=== PATIENT | female | born 1990 | race Caucasian/White ===

== ENCOUNTER 2016-11-09 06:34 | Emergency (ER) | payer MEDICAID ==
[~2016-11-09] VITALS: Ht 157.5 cm; Wt 53.5 kg
[~2016-11-09 06:34] MED LIST: COGENTIN; FLUO10CA13 PO; HALDOL; OXCA150T3 PO
[2016-11-09 07:22] LABS: DAU SCREEN DISCLAIMER
[2016-11-09 07:32] LABS: HEMOGLOBIN 12.6 g/dL (11.7-16.4)
[2016-11-09 07:46] LABS: BLOOD UREA NITROGEN 8 mg/dL (7-18)
[2016-11-09 07:54] LABS: ACETAMINOPHEN < 2 mcg/mL (10-30)
[2016-11-09] MEDS ORDERED: ENOXAPARIN 40 MG/0.4 ML SQ SCH (13:30)
[2016-11-09] MEDS ORDERED: LORazepam 1MG TABLET PO PRN (13:30)
[2016-11-09] MEDS ORDERED: GUAIFENESIN/DM 200-20MG, 10ML UDC PO PRN (13:30)
[2016-11-09] MEDS ORDERED: ONDANSETRON ODT 4 MG PO PRN (13:30)
[2016-11-09] MEDS ORDERED: ACETAMINOPHEN 325 MG TABLET PO PRN (13:30)
[2016-11-09] MEDS ORDERED: DOCUSATE 100 MG CAPSULE PO PRN (13:30)
[2016-11-09 15:04] VITALS: BP 111/70
[2016-11-09] MEDS ORDERED: OXCARBAZEPINE 150 MG TABLET PO SCH (21:00)
[2016-11-10] MEDS ORDERED: FLUOXETINE 10 MG CAP PO SCH (09:00)
== END 2016-11-09 15:33 | disposition home or self-care (01) ==
LOC: ED 08:29 → UNDOADMOB 10:23 → EDIP 10:23 → ED 15:33
DX: R45.851 Suicidal ideations (principal); F20.9 Schizophrenia, unspecified; F25.9 Schizoaffective disorder, unspecified; Z88.8 Allergy status to other drugs, medicaments and biological substances; F15.10 Other stimulant abuse, uncomplicated
CPT/HCPCS: 36415; 80048; 80307; 80329; 82040; 84703; 85025; G0480

== ENCOUNTER 2016-12-28 06:08 | Observation (INO) | payer MEDICAID ==
[~2016-12-28] VITALS: Ht 157.5 cm; Wt 49.4 kg
[2016-12-28 07:17] LABS: ACETAMINOPHEN < 2 mcg/mL (10-30); ASPARTATE AMINO TRANSFERASE 14 U/L (15-37); BLOOD UREA NITROGEN 17 mg/dL (7-18)
[2016-12-28] MEDS ORDERED: QUETIAPINE 25MG TABLET PO SCH (10:00)
[2016-12-28] MEDS ORDERED: BISACODYL 10 MG SUPP PR PRN (10:00)
[2016-12-28] MEDS ORDERED: ONDANSETRON ODT 4 MG PO PRN (10:00)
[2016-12-28 10:01] LABS: PATH.CAST-FLAG NOT PRESENT; SPERM-FLAG NOT PRESENT; SRC-FLAG NOT PRESENT; XTAL-FLAG NOT PRESENT; YLC-FLAG NOT PRESENT
[2016-12-28 10:45] LABS: DAU SCREEN DISCLAIMER
[2016-12-28] MEDS ORDERED: POTASSIUM CHLORIDE 20 MEQ TAB.ER.PRT PO ONE (13:00)
[2016-12-28] MEDS ORDERED: LORazepam 0.5MG TABLET PO PRN (13:00)
[2016-12-28 13:04] VITALS: BP 105/71
[2016-12-28 20:14] VITALS: BP 105/70
[2016-12-28] MEDS ORDERED: NITROFURANTOIN (MACROBID) 100 MG CAPSULE PO SCH (23:30)
[2016-12-29] MEDS ORDERED: SENNA/DOCUSATE TABLET PO SCH (09:00)
== END 2016-12-29 01:20 ==
LOC: ED 07:20 → EDIP 09:05 → 3E 10:57
PROVIDERS: ADMIT Hospitalist; ATTEND Hospitalist
DX: R45.851 Suicidal ideations (principal); E87.6 Hypokalemia; F31.9 Bipolar disorder, unspecified; I34.1 Nonrheumatic mitral (valve) prolapse; F15.10 Other stimulant abuse, uncomplicated; Z87.820 Personal history of traumatic brain injury; Z91.5 Personal history of self-harm; F25.9 Schizoaffective disorder, unspecified
CPT/HCPCS: 36415; 80053; 80307; 80329; 81001; 84439; 84443; 84703; 85025; 85610; 87077; 87086; 87186; 99285; G0378; G0480

== ENCOUNTER 2017-03-18 01:33 | Observation (INO) | payer MEDICAID ==
[~2017-03-18] VITALS: Ht 162.6 cm; Wt 58.0 kg
[2017-03-18 02:29] LABS: BLOOD UREA NITROGEN 12 mg/dL (7-18)
[2017-03-18 02:35] LABS: ASPARTATE AMINO TRANSFERASE 26 U/L (15-37)
[2017-03-18 02:37] LABS: ACETAMINOPHEN < 2 mcg/mL (10-30)
[2017-03-18] MEDS ORDERED: ONDANSETRON ODT 4 MG PO PRN (03:30)
[2017-03-18] MEDS ORDERED: ACETAMINOPHEN 325 MG TABLET PO PRN (03:30)
[2017-03-18] MEDS ORDERED: ACETAMINOPHEN 325 MG TABLET ONE (04:14)
[2017-03-18 04:22] LABS: DAU SCREEN DISCLAIMER
[2017-03-18] MEDS: OXCARBAZEPINE 150 MG TABLET PO SCH ×2 (08:27→22:11)
[2017-03-18] MEDS: FLUOXETINE 20 MG CAPSULE PO SCH (08:27)
[2017-03-18] MEDS ORDERED: KETOROLAC 10MG TABLET PO PRN (23:00)
[2017-03-19] MEDS: FLUOXETINE 20 MG CAPSULE PO SCH (09:36)
[2017-03-19] MEDS: OXCARBAZEPINE 150 MG TABLET PO SCH ×2 (10:24→23:03)
[2017-03-19] MEDS ORDERED: KETOROLAC 30 MG/1 ML IM PRN (11:30)
[2017-03-19] MEDS ORDERED: KETOROLAC 30 MG/1 ML ONE ×2 (11:47→11:49)
[2017-03-20] MEDS: FLUOXETINE 20 MG CAPSULE PO SCH (09:00)
[2017-03-20] MEDS: OXCARBAZEPINE 150 MG TABLET PO SCH ×3 (13:26→21:24)
[2017-03-20 14:09] VITALS: BP 103/69
[2017-03-20 19:44] VITALS: BP 102/72
[2017-03-20 22:08] VITALS: BP 110/73
[2017-03-21 02:14] VITALS: BP 108/73
[2017-03-21 07:28] VITALS: BP 107/73
[2017-03-21] MEDS: FLUOXETINE 20 MG CAPSULE PO SCH (09:00)
[2017-03-21] MEDS: OXCARBAZEPINE 150 MG TABLET PO SCH ×2 (09:00→20:27)
[2017-03-21] MEDS ORDERED: ONDANSETRON ODT 4 MG PO PRN (19:30)
[2017-03-21] MEDS ORDERED: ACETAMINOPHEN 325 MG TABLET PO PRN (19:30)
[2017-03-21 19:45] VITALS: BP 110/70
[2017-03-22 07:44] VITALS: BP 99/64
[2017-03-22] MEDS: FLUOXETINE 20 MG CAPSULE PO SCH (08:49)
[2017-03-22] MEDS: OXCARBAZEPINE 150 MG TABLET PO SCH (08:51)
[2017-03-22 19:56] VITALS: BP 103/73
== END 2017-03-22 20:00 | disposition home or self-care (01) ==
LOC: ED 02:06 → EDIP 02:48 → 3E 03-20 14:07
DX: R45.851 Suicidal ideations (principal); F31.9 Bipolar disorder, unspecified; I34.1 Nonrheumatic mitral (valve) prolapse; F15.10 Other stimulant abuse, uncomplicated; Z91.14 Patient's other noncompliance with medication regimen
CPT/HCPCS: 36415; 80053; 80307; 80329; 81001; 84703; 85025; 87086; 96372; 99285; G0378; J1885; G0480

== ENCOUNTER 2017-04-04 22:18 | Emergency (ER) | payer MEDICAID ==
[~2017-04-04] VITALS: Ht 157.5 cm; Wt 55.0 kg
[2017-04-04 22:20] VITALS: BP 118/84
== END 2017-04-04 23:53 | disposition home or self-care (01) ==
LOC: ED 22:35
DX: S93.492A Sprain of other ligament of left ankle, initial encounter (principal); F25.9 Schizoaffective disorder, unspecified; F31.9 Bipolar disorder, unspecified; X50.1XXA Overexertion from prolonged static or awkward postures, initial encounter; Y93.89 Activity, other specified; Y92.89 Other specified places as the place of occurrence of the external cause; Y99.8 Other external cause status
CPT/HCPCS: 99284

== ENCOUNTER 2017-04-26 21:35 | Observation (INO) | payer MEDICAID ==
[~2017-04-26] VITALS: Ht 157.5 cm; Wt 55.0 kg
[2017-04-26 22:24] LABS: HEMATOCRIT 39.3 % (34.6-47.8); WHITE BLOOD COUNT 7.1 x10^3/uL (3.4-10)
[2017-04-26 22:37] LABS: BLOOD UREA NITROGEN 21 mg/dL (7-18)
[2017-04-26 22:40] LABS: ASPARTATE AMINO TRANSFERASE 17 U/L (15-37)
[2017-04-26 22:42] LABS: ACETAMINOPHEN < 2 mcg/mL (10-30)
[2017-04-27] MEDS ORDERED: QUET50TA PO (00:27)
[2017-04-27] MEDS ORDERED: ALBU6.7H INH (00:27)
[2017-04-27] MEDS ORDERED: OXCA150T PO (00:27)
[2017-04-27] MEDS ORDERED: [UNRECOGNIZED DRUG - CODE] PO (00:27)
[2017-04-27] MEDS ORDERED: RANI300C PO (00:27)
[2017-04-27] MEDS ORDERED: MAGN30TA2 PO (00:27)
[2017-04-27 00:34] LABS: DAU SCREEN DISCLAIMER
[2017-04-27] MEDS ORDERED: QUETIAPINE 25MG TABLET PO ONE (01:00)
[2017-04-27] MEDS ORDERED: TEMAZEPAM 15 MG CAPSULE PO PRN (02:00)
[2017-04-27] MEDS ORDERED: BENZTROPINE 1 MG TABLET PO PRN (02:00)
[2017-04-27] MEDS ORDERED: QUETIAPINE 25MG TABLET PO PRN (02:00)
[2017-04-27 02:34] VITALS: BP 110/71
[2017-04-27 08:00] VITALS: BP 97/64
[2017-04-27] MEDS: OXCARBAZEPINE 150 MG TABLET PO SCH ×3 (08:26→20:28)
[2017-04-27] MEDS: FLUOXETINE 20 MG CAPSULE PO SCH (08:26)
[2017-04-27] MEDS ORDERED: FAMOTIDINE 20 MG TABLET ONE (20:26)
[2017-04-27] MEDS: QUETIAPINE 25MG TABLET PO SCH (20:28)
[2017-04-27 20:37] VITALS: BP 107/73
[2017-04-27] MEDS: FAMOTIDINE 40 MG TABLET PO SCH (21:00)
[2017-04-28 08:00] VITALS: BP 113/73
[2017-04-28 08:40] VITALS: BP 117/74
[2017-04-28] MEDS: FLUOXETINE 20 MG CAPSULE PO SCH (08:51)
[2017-04-28] MEDS: OXCARBAZEPINE 150 MG TABLET PO SCH ×3 (08:51→20:15)
[2017-04-28 11:44] LABS: HCG UR OBC PASS
[2017-04-28 19:20] VITALS: BP_SYST 117; BP_SYST 120; BP_DIAS 74; BP_DIAS 84
[2017-04-28] MEDS ORDERED: FAMOTIDINE 20 MG TABLET ONE (20:03)
[2017-04-28] MEDS: QUETIAPINE 25MG TABLET PO SCH (20:16)
[2017-04-28] MEDS: FAMOTIDINE 40 MG TABLET PO SCH (20:16)
[2017-04-29 07:24] VITALS: BP 106/70
[2017-04-29] MEDS: FLUOXETINE 20 MG CAPSULE PO SCH (07:30)
[2017-04-29] MEDS: OXCARBAZEPINE 150 MG TABLET PO SCH ×3 (07:30→20:33)
[2017-04-29] MEDS: ACETAMINOPHEN 325 MG TABLET PO PRN ×2 (08:25→19:11)
[2017-04-29 19:56] VITALS: BP 124/74
[2017-04-29] MEDS: FAMOTIDINE 40 MG TABLET PO SCH (20:33)
[2017-04-29] MEDS: QUETIAPINE 25MG TABLET PO SCH (20:33)
[2017-04-30 07:00] VITALS: BP 103/67
[2017-04-30] MEDS: OXCARBAZEPINE 150 MG TABLET PO SCH ×3 (07:47→20:14)
[2017-04-30] MEDS: FLUOXETINE 20 MG CAPSULE PO SCH (07:47)
[2017-04-30] MEDS: ACETAMINOPHEN 325 MG TABLET PO PRN (09:05)
[2017-04-30 19:19] VITALS: BP 104/66
[2017-04-30] MEDS: FAMOTIDINE 40 MG TABLET PO SCH (20:14)
[2017-04-30] MEDS: QUETIAPINE 25MG TABLET PO SCH (20:14)
[2017-05-01 08:00] VITALS: BP 109/70
[2017-05-01] MEDS: OXCARBAZEPINE 150 MG TABLET PO SCH ×2 (08:50→16:28)
[2017-05-01] MEDS: FLUOXETINE 20 MG CAPSULE PO SCH (08:50)
[2017-05-01] MEDS ORDERED: FLUO10CA13 PO (12:10)
[2017-05-01] MEDS ORDERED: QUET50TA PO (12:10)
[2017-05-01] MEDS ORDERED: OXCA150T PO (12:10)
== END 2017-05-01 19:53 | disposition home or self-care (01) ==
LOC: ED 23:28 → EDIP 04-27 00:54 → 3E 04-27 02:24
PROVIDERS: ADMIT Internal Medicine; ATTEND Internal Medicine
DX: T14.91 Suicide attempt (principal); S69.90XA Unspecified injury of unspecified wrist, hand and finger(s), initial encounter; F25.9 Schizoaffective disorder, unspecified; F31.9 Bipolar disorder, unspecified; F43.10 Post-traumatic stress disorder, unspecified; Z87.891 Personal history of nicotine dependence; Z91.14 Patient's other noncompliance with medication regimen; Z91.5 Personal history of self-harm; X78.8XXA Intentional self-harm by other sharp object, initial encounter; Y93.89 Activity, other specified; Y92.89 Other specified places as the place of occurrence of the external cause; Y99.8 Other external cause status
CPT/HCPCS: 36415; 80053; 80307; 80329; 81025; 85025; 99285; G0378; G0480

== ENCOUNTER 2017-05-05 21:33 | Emergency (ER) | payer MEDICAID ==
[~2017-05-05] VITALS: Ht 157.5 cm; Wt 59.0 kg
[~2017-05-05 21:33] MED LIST changes: +ALBU6.7H INH; +MAGN30TA2 PO; +OXCA150T PO; +QUET50TA PO; +RANI300C PO; +[UNRECOGNIZED DRUG - CODE] PO
[2017-05-05 21:45] VITALS: BP 127/70
[2017-05-05 22:26] LABS: HEMATOCRIT 36.5 % (34.6-47.8); HEMOGLOBIN 11.9 g/dL (11.7-16.4); WHITE BLOOD COUNT 6.7 x10^3/uL (3.4-10)
[2017-05-05] MEDS ORDERED: LORazepam 1MG TABLET PO ONE (22:30)
[2017-05-05] MEDS ORDERED: LORazepam 1MG TABLET ONE (22:31)
[2017-05-05 22:33] LABS: DAU SCREEN DISCLAIMER
[2017-05-05 22:38] LABS: ACETAMINOPHEN 3 mcg/mL (10-30); BLOOD UREA NITROGEN 14 mg/dL (7-18)
== END 2017-05-05 23:06 | disposition home or self-care (01) ==
LOC: ED 22:36
DX: Z00.00 Encounter for general adult medical examination without abnormal findings (principal); F20.0 Paranoid schizophrenia; Z88.5 Allergy status to narcotic agent; Z88.8 Allergy status to other drugs, medicaments and biological substances
CPT/HCPCS: 36415; 80048; 80307; 80329; 82040; 84703; 85025; 99284; G0479; G0480

== ENCOUNTER 2017-05-08 17:42 | Observation (INO) | payer MEDICAID ==
[~2017-05-08] VITALS: Ht 157.5 cm; Wt 55.0 kg
[2017-05-08] MEDS ORDERED: QUET100T PO (18:05)
[2017-05-08 18:31] LABS: DAU SCREEN DISCLAIMER
[2017-05-08 19:02] LABS: BLOOD UREA NITROGEN 20 mg/dL (7-18)
[2017-05-08 19:06] LABS: ACETAMINOPHEN 12 mcg/mL (10-30); ASPARTATE AMINO TRANSFERASE 22 U/L (15-37)
[2017-05-08 19:14] LABS: HEMATOCRIT 37.1 % (34.6-47.8); HEMOGLOBIN 12.4 g/dL (11.7-16.4); WHITE BLOOD COUNT 5.4 x10^3/uL (3.4-10)
[2017-05-09] MEDS ORDERED: BENZTROPINE 1 MG TABLET PO PRN ×2
[2017-05-09] MEDS ORDERED: ZIPRASIDONE 20 MG INJ IM PRN
[2017-05-09] MEDS ORDERED: LORazepam 1MG TABLET ONE (21:34)
[2017-05-10] MEDS ORDERED: ACETAMINOPHEN 325 MG TABLET ONE (16:15)
[2017-05-10] MEDS: ACETAMINOPHEN 325 MG TABLET PO PRN ×2 (16:20→20:51)
[2017-05-10 19:45] VITALS: BP 114/78
[2017-05-10] MEDS ORDERED: RISPERIDONE 0.5 MG TABLET ONE (20:48)
[2017-05-10] MEDS: RISPERIDONE 0.5 MG TABLET PO SCH (20:50)
[2017-05-11 08:00] VITALS: BP 115/81
[2017-05-11] MEDS: RISPERIDONE 0.5 MG TABLET PO SCH ×2 (09:53→20:36)
[2017-05-11] MEDS: ACETAMINOPHEN 325 MG TABLET PO PRN (10:01)
[2017-05-11 19:49] VITALS: BP 112/75
[2017-05-12] MEDS: ACETAMINOPHEN 325 MG TABLET PO PRN ×2 (03:59→20:20)
[2017-05-12 08:22] VITALS: BP 103/64
[2017-05-12] MEDS: RISPERIDONE 0.5 MG TABLET PO SCH ×2 (08:41→20:21)
[2017-05-12 19:54] VITALS: BP 101/66
[2017-05-12 21:46] LABS: IS PT STATUS REG ER OR PRE ER? NO
[2017-05-13 07:25] VITALS: BP 94/59
[2017-05-13] MEDS: RISPERIDONE 0.5 MG TABLET PO SCH (08:37)
[2017-05-13] MEDS ORDERED: RISP0.5T24 PO (10:03)
== END 2017-05-13 13:46 | disposition home or self-care (01) ==
LOC: ED 21:07 → EDIP 23:42 → 3E 05-10 19:42
PROVIDERS: ADMIT Internal Medicine; ATTEND Internal Medicine
DX: T43.591A Poisoning by other antipsychotics and neuroleptics, accidental (unintentional), initial encounter (principal); F25.9 Schizoaffective disorder, unspecified; F31.9 Bipolar disorder, unspecified; F43.10 Post-traumatic stress disorder, unspecified; Y92.89 Other specified places as the place of occurrence of the external cause; Z91.5 Personal history of self-harm
CPT/HCPCS: 36415; 80053; 80307; 80329; 84484; 84702; 85025; 93005; 93971; 99285; G0378; G0479; G0480

== ENCOUNTER 2017-06-03 21:48 | Emergency (ER) | payer MEDICAID ==
[~2017-06-03] VITALS: Ht 157.5 cm; Wt 63.0 kg
[~2017-06-03 21:48] MED LIST changes: +QUET100T PO; +RISP0.5T24 PO
[2017-06-03] MEDS ORDERED: QUET25TA5 PO (22:21)
[2017-06-03] MEDS ORDERED: RANI-276 PO (22:21)
[2017-06-03] MEDS ORDERED: IBUP200C5 PO (22:24)
[2017-06-03] MEDS ORDERED: ALBU0.63 NEB (22:24)
[2017-06-03] MEDS ORDERED: NALT380S INJ (22:26)
[2017-06-03 23:32] VITALS: BP 101/62
== END 2017-06-03 23:34 | disposition home or self-care (01) ==
LOC: ED 22:10
DX: S20.212A Contusion of left front wall of thorax, initial encounter (principal); S20.211A Contusion of right front wall of thorax, initial encounter; S80.11XA Contusion of right lower leg, initial encounter; W19.XXXA Unspecified fall, initial encounter; Y93.89 Activity, other specified; Y92.099 Unspecified place in other non-institutional residence as the place of occurrence of the external cause; Y99.8 Other external cause status
CPT/HCPCS: 71020; 99284

== ENCOUNTER 2017-06-11 01:32 | Emergency (ER) | payer MEDICAID ==
[~2017-06-11] VITALS: Ht 162.6 cm; Wt 50.0 kg
[~2017-06-11 01:32] MED LIST changes: +ALBU0.63 NEB; +IBUP200C5 PO; +NALT380S INJ; +QUET25TA5 PO; +RANI-276 PO
[2017-06-11] MEDS ORDERED: ACETAMINOPHEN 325 MG TABLET PO ONE (02:00)
[2017-06-11] MEDS ORDERED: ACETAMINOPHEN 325 MG TABLET ONE (02:13)
[2017-06-11 02:59] VITALS: BP 116/80
== END 2017-06-11 03:02 | disposition home or self-care (01) ==
LOC: ED 02:56
DX: R07.89 Other chest pain (principal); F25.9 Schizoaffective disorder, unspecified; F31.9 Bipolar disorder, unspecified; Z98.890 Other specified postprocedural states
CPT/HCPCS: 71020; 93005; 99284

== ENCOUNTER 2017-06-28 20:54 | Observation (INO) | payer MEDICAID ==
[~2017-06-28] VITALS: Ht 157.5 cm; Wt 66.0 kg
[2017-06-28 21:45] LABS: HEMATOCRIT 36.4 % (34.6-47.8); HEMOGLOBIN 11.9 g/dL (11.7-16.4); WHITE BLOOD COUNT 10.5 x10^3/uL (3.4-10)
[2017-06-28 21:57] LABS: ASPARTATE AMINO TRANSFERASE 25 U/L (15-37); BLOOD UREA NITROGEN 15 mg/dL (7-18)
[2017-06-28 21:59] LABS: DAU SCREEN DISCLAIMER
[2017-06-28 22:02] LABS: ACETAMINOPHEN < 2 mcg/mL (10-30)
[2017-06-29] MEDS ORDERED: ACETAMINOPHEN 325 MG TABLET PO PRN (01:00)
[2017-06-29] MEDS ORDERED: LORazepam 1MG TABLET PO PRN (01:00)
[2017-06-29] MEDS ORDERED: ONDANSETRON ODT 4 MG PO PRN (01:00)
[2017-06-29 02:16] VITALS: BP 109/67
[2017-06-29] MEDS ORDERED: ALBUTEROL SULFATE 2.5 MG/3 ML NPPB PRN (02:30)
[2017-06-29 07:33] VITALS: BP 95/60
[2017-06-29] MEDS: OXCARBAZEPINE 150 MG TABLET PO SCH ×3 (09:19→20:00)
[2017-06-29] MEDS: FLUOXETINE 10 MG CAP PO SCH (09:19)
[2017-06-29] MEDS: QUETIAPINE 25MG TABLET PO SCH (09:19)
[2017-06-29] MEDS: FAMOTIDINE 20 MG TABLET PO SCH (09:20)
[2017-06-29 19:41] VITALS: BP 102/65
[2017-06-29] MEDS ORDERED: QUETIAPINE 100MG TABLET PO ONE (20:00)
[2017-06-30 07:56] VITALS: BP 93/62
[2017-06-30] MEDS: FAMOTIDINE 20 MG TABLET PO SCH (08:13)
[2017-06-30] MEDS: OXCARBAZEPINE 150 MG TABLET PO SCH ×2 (08:14→16:25)
[2017-06-30] MEDS: QUETIAPINE 25MG TABLET PO SCH (08:14)
[2017-06-30] MEDS: FLUOXETINE 10 MG CAP PO SCH (08:14)
== END 2017-06-30 16:35 | disposition home or self-care (01) ==
LOC: ED 23:18 → EDIP 06-29 00:09 → 3E 06-29 02:15
PROVIDERS: ADMIT Hospitalist; ATTEND Hospitalist
DX: F20.9 Schizophrenia, unspecified (principal); Q90.9 Down syndrome, unspecified; Z87.891 Personal history of nicotine dependence; F31.9 Bipolar disorder, unspecified
CPT/HCPCS: 36415; 80053; 80307; 80329; 84703; 85025; 99285; G0378; G0479; G0480

== ENCOUNTER 2017-07-14 17:05 | Emergency (ER) | payer MEDICAID ==
[~2017-07-14] VITALS: Ht 157.5 cm; Wt 68.5 kg
[2017-07-14 17:07] VITALS: BP 110/79
[2017-07-14] MEDS ORDERED: TERB250T3 PO (17:38)
[2017-07-14] MEDS ORDERED: FLUOXETINE 20 MG CAPSULE PO ONE (18:00)
[2017-07-14] MEDS ORDERED: FLUOXETINE 20 MG CAPSULE PO SCH (18:00)
== END 2017-07-14 18:27 | disposition home or self-care (01) ==
LOC: ED 18:21
DX: R45.851 Suicidal ideations (principal); F31.9 Bipolar disorder, unspecified; F20.9 Schizophrenia, unspecified
CPT/HCPCS: 99284

== ENCOUNTER 2017-08-18 20:50 | Emergency (ER) | payer MEDICAID ==
[~2017-08-18] VITALS: Ht 157.5 cm; Wt 65.8 kg
[~2017-08-18 20:50] MED LIST changes: +TERB250T3 PO
[2017-08-19 01:08] LABS: RAPID INFLUENZA A Negative (Negative); RAPID INFLUENZA B Negative (Negative)
[2017-08-19 01:34] VITALS: BP 111/45
== END 2017-08-19 01:36 | disposition home or self-care (01) ==
LOC: ED 23:28
DX: R05 Cough (principal); R09.81 Nasal congestion; R07.89 Other chest pain; F20.9 Schizophrenia, unspecified; F31.9 Bipolar disorder, unspecified
CPT/HCPCS: 71020; 87400; 93005; 99285

== ENCOUNTER 2017-08-24 23:01 | Observation (INO) | payer MEDICAID ==
[~2017-08-24] VITALS: Ht 157.5 cm; Wt 60.0 kg
[2017-08-24 23:45] LABS: BASOPHILS # (AUTO) 0.01 x10^3/uL (0-0.1); BASOPHILS % (AUTO) 0 % (0-1); EOSINOPHILS # (AUTO) 0.13 x10^3/uL (0-0.4); EOSINOPHILS % (AUTO) 2 % (1-7); LYMPHOCYTES # (AUTO) 2.69 x10^3/uL (1-3.4); LYMPHOCYTES % (AUTO) 34 % (22-44); MD NO; MEAN CORPUSCULAR HEMOGLOBIN 25.5 pg (27.0-34.8); MEAN CORPUSCULAR HGB CONC 33.1 g/dL (32.4-35.8); MEAN CORPUSCULAR VOLUME 76.8 fL (80-100); MEAN PLATELET VOLUME 7.2 fL (7.4-10.4); MONOCYTES # (AUTO) 0.32 x10^3/uL (0.2-0.8); MONOCYTES % (AUTO) 4 % (2-9); NEUTROPHILS # (AUTO) 4.71 x10^3/uL (1.8-6.8); NEUTROPHILS % (AUTO) 60 % (42-75); PLATELET COUNT 348 x10^3/uL (130-400); RED BLOOD COUNT 4.94 x10^6/uL (3.82-5.3)
[2017-08-24 23:58] LABS: ALBUMIN 3.6 g/dL (3.4-5.0); ANION GAP 8 mmol/L (5-15); CALCIUM 8.6 mg/dL (8.5-10.1); CHLORIDE 110 mmol/L (98-107)
[2017-08-25 00:01] LABS: ALANINE AMINOTRANSFERASE 18 U/L (12-78); ALKALINE PHOSPHATASE 93 U/L (45-117); BILIRUBIN,TOTAL 0.3 mg/dL (0.2-1.0); CREATININE 0.65 mg/dL (0.55-1.02); TOTAL PROTEIN 7.1 g/dL (6.4-8.2)
[2017-08-25 00:02] LABS: ACETAMINOPHEN < 2 mcg/mL (10-30); SALICYLATE LEVEL < 1.7 mg/dL (2.8-20.0)
[2017-08-25] MEDS ORDERED: ZIPRASIDONE 20 MG INJ IM ONE ×2 (00:30→00:45)
[2017-08-25] MEDS: OXCARBAZEPINE 150 MG TABLET PO SCH ×3 (11:00→21:15)
[2017-08-25] MEDS ORDERED: ZIPRASIDONE 20MG CAPSULE PO PRN (11:00)
[2017-08-25] MEDS ORDERED: ONDANSETRON ODT 4 MG PO PRN (11:00)
[2017-08-25] MEDS ORDERED: FLUOXETINE 10 MG CAP PO SCH (11:00)
[2017-08-25] MEDS ORDERED: RANITIDINE HCL 75 MG PO SCH (11:00)
[2017-08-25] MEDS: TERBINAFINE 250MG TABLET PO SCH (11:00)
[2017-08-25] MEDS ORDERED: DIPHENHYDRAMINE 50 MG CAPSULE PO PRN (11:00)
[2017-08-25] MEDS ORDERED: ZIPRASIDONE 20 MG INJ IM PRN (11:00)
[2017-08-25] MEDS ORDERED: ALBUTEROL SULFATE 2.5 MG/3 ML NEB PRN (11:00)
[2017-08-25] MEDS ORDERED: ACETAMINOPHEN 325 MG TABLET ONE (18:21)
[2017-08-25] MEDS: ACETAMINOPHEN 325 MG TABLET PO PRN (18:23)
[2017-08-25] MEDS: QUETIAPINE 200 MG TABLET PO SCH (21:15)
[2017-08-25 23:38] LABS: MICROSCOPIC AUTO
[2017-08-25 23:42] LABS: CULTURE INDICATED? YES
[2017-08-25 23:46] LABS: AMPHETAMINE SCREEN, URINE Negative (Negative); BARBITURATE SCREEN, URINE Negative (Negative); BENZODIAZEPINE SCREEN, URINE Negative (Negative); CANNABINOID SCREEN, URINE Negative (Negative); COCAINE SCREEN, URINE Negative (Negative); METHADONE SCREEN, URINE Negative (Negative); OPIATE SCREEN, URINE Negative (Negative)
[2017-08-26 00:02] VITALS: BP 122/84
[2017-08-26] MEDS ORDERED: FLU VACC QS2017-18 (36MOS+) UP/PF 0.5 ML IM-VACC ONE (00:30)
[2017-08-26 07:47] VITALS: BP 112/70
[2017-08-26] MEDS: OXCARBAZEPINE 150 MG TABLET PO SCH ×3 (08:10→21:27)
[2017-08-26] MEDS: FLUOXETINE 20 MG CAPSULE PO SCH (08:10)
[2017-08-26] MEDS: TERBINAFINE 250MG TABLET PO SCH (08:11)
[2017-08-26] MEDS: FAMOTIDINE 20 MG TABLET PO SCH (08:12)
[2017-08-26 20:00] VITALS: BP 111/74
[2017-08-26] MEDS: QUETIAPINE 200 MG TABLET PO SCH (21:27)
[2017-08-27 07:38] VITALS: BP 115/76
[2017-08-27] MEDS: OXCARBAZEPINE 150 MG TABLET PO SCH ×3 (08:02→20:42)
[2017-08-27] MEDS: TERBINAFINE 250MG TABLET PO SCH (08:03)
[2017-08-27] MEDS: FLUOXETINE 20 MG CAPSULE PO SCH (08:03)
[2017-08-27] MEDS: FAMOTIDINE 20 MG TABLET PO SCH (08:03)
[2017-08-27 13:04] LABS: HCG UR SG 1.022 (1.003-1.030)
[2017-08-27 19:34] VITALS: BP 116/78
[2017-08-27] MEDS: QUETIAPINE 200 MG TABLET PO SCH (20:42)
[2017-08-28] MEDS: ACETAMINOPHEN 325 MG TABLET PO PRN (00:52)
[2017-08-28 07:50] VITALS: BP 98/62
[2017-08-28] MEDS: TERBINAFINE 250MG TABLET PO SCH (08:48)
[2017-08-28] MEDS: FLUOXETINE 20 MG CAPSULE PO SCH (08:49)
[2017-08-28] MEDS: OXCARBAZEPINE 150 MG TABLET PO SCH (08:49)
[2017-08-28] MEDS: FAMOTIDINE 20 MG TABLET PO SCH (08:49)
== END 2017-08-28 13:45 ==
LOC: ED 23:59 → INTOOBSV 08-25 01:08 → EDIP 08-25 01:08 → 2N 08-26
PROVIDERS: ADMIT Surgery; ATTEND Family Medicine
DX: R45.851 Suicidal ideations (principal); F31.9 Bipolar disorder, unspecified; F25.9 Schizoaffective disorder, unspecified; Z87.891 Personal history of nicotine dependence; Z23 Encounter for immunization
CPT/HCPCS: 36415; 80053; 80307; 80329; 81001; 81025; 85025; 87086; 90471; 90686; 96372; 99285; G0378; J3486; G0480

== ENCOUNTER 2017-09-15 06:09 | Emergency (ER) | payer MEDICAID ==
[~2017-09-15] VITALS: Ht 157.5 cm; Wt 67.8 kg
[2017-09-15 06:45] VITALS: BP 118/76
[2017-09-15 07:24] LABS: MICROSCOPIC AUTO
[2017-09-15 07:29] LABS: CULTURE INDICATED? YES; HCG UR SG 1.018 (1.003-1.030)
== END 2017-09-15 07:48 | disposition home or self-care (01) ==
LOC: ED 07:42
DX: F10.120 Alcohol abuse with intoxication, uncomplicated (principal); R82.99 Other abnormal findings in urine
CPT/HCPCS: 81001; 81025; 82962; 87086; 99284

== ENCOUNTER 2017-10-06 16:32 | Emergency (ER) | payer MEDICAID ==
[~2017-10-06] VITALS: Ht 157.5 cm; Wt 69.1 kg
[2017-10-06 16:34] VITALS: BP 120/80
[2017-10-06] MEDS ORDERED: ACETAMINOPHEN 500 MG TABLET ONE (17:36)
[2017-10-06] MEDS ORDERED: TOPI25CA5 PO (17:44)
[2017-10-06] MEDS ORDERED: ACETAMINOPHEN 500 MG TABLET PO ONE (18:00)
[2017-10-06] MEDS ORDERED: IBUPROFEN 200 MG TABLET PO ONE (18:30)
[2017-10-06] MEDS ORDERED: IBUPROFEN 200 MG TABLET ONE (18:32)
== END 2017-10-06 18:53 | disposition home or self-care (01) ==
LOC: ED 18:47
DX: S06.0X0A Concussion without loss of consciousness, initial encounter (principal); S00.12XA Contusion of left eyelid and periocular area, initial encounter; Z88.1 Allergy status to other antibiotic agents; X58.XXXA Exposure to other specified factors, initial encounter; Y93.K1 Activity, walking an animal; Y92.89 Other specified places as the place of occurrence of the external cause; Y99.8 Other external cause status
CPT/HCPCS: 70450; 70486; 99284

== ENCOUNTER 2017-11-05 19:52 | Emergency (ER) | payer MEDICAID ==
[~2017-11-05] VITALS: Ht 157.5 cm; Wt 67.5 kg
[~2017-11-05 19:52] MED LIST changes: +TOPI25CA5 PO
[2017-11-05 19:55] VITALS: BP 134/84
[2017-11-05] MEDS ORDERED: KETOROLAC 30 MG/1 ML ONE (20:26)
[2017-11-05] MEDS ORDERED: DIPHENHYDRAMINE 50 MG/ML, 1ML ONE (20:26)
[2017-11-05] MEDS ORDERED: METOCLOPRAMIDE 5 MG/ML, 2ML ONE (20:27)
[2017-11-05] MEDS ORDERED: DIPHENHYDRAMINE 50 MG/ML, 1ML IVPush ONE (20:30)
[2017-11-05] MEDS ORDERED: SODIUM CHLORIDE 0.9% 1,000ML IVBOLUS ONE (20:30)
[2017-11-05] MEDS ORDERED: KETOROLAC 30 MG/1 ML IVPush ONE (20:30)
[2017-11-05] MEDS ORDERED: SODIUM CHLORIDE FLUSH 10ML SYR IVF ONE (20:30)
[2017-11-05] MEDS ORDERED: METOCLOPRAMIDE 5 MG/ML, 2ML IVPush ONE (20:30)
== END 2017-11-05 21:46 ==
LOC: ED 21:05
DX: G44.039 Episodic paroxysmal hemicrania, not intractable (principal); F25.9 Schizoaffective disorder, unspecified; F31.9 Bipolar disorder, unspecified; F43.20 Adjustment disorder, unspecified
CPT/HCPCS: 96374; 96375; 99284; J1200; J1885; J2765; J7030

== ENCOUNTER 2018-02-07 11:34 | Emergency (ER) | payer MEDICAID ==
[~2018-02-07] VITALS: Ht 157.5 cm; Wt 63.5 kg
[2018-02-07 12:14] LABS: BASOPHILS # (AUTO) 0.08 x10^3/uL (0-0.1); BASOPHILS % (AUTO) 1 % (0-1); EOSINOPHILS # (AUTO) 0.19 x10^3/uL (0-0.4); EOSINOPHILS % (AUTO) 2 % (1-7); LYMPHOCYTES # (AUTO) 2.96 x10^3/uL (1-3.4); LYMPHOCYTES % (AUTO) 35 % (22-44); MD NO; MEAN CORPUSCULAR HEMOGLOBIN 26.6 pg (27.0-34.8); MEAN CORPUSCULAR HGB CONC 32.7 g/dL (32.4-35.8); MEAN CORPUSCULAR VOLUME 81.4 fL (80-100); MEAN PLATELET VOLUME 7.5 fL (7.4-10.4); MONOCYTES # (AUTO) 0.58 x10^3/uL (0.2-0.8); MONOCYTES % (AUTO) 7 % (2-9); NEUTROPHILS # (AUTO) 4.75 x10^3/uL (1.8-6.8); NEUTROPHILS % (AUTO) 56 % (42-75); PLATELET COUNT 339 x10^3/uL (130-400); RED BLOOD COUNT 4.89 x10^6/uL (3.82-5.3); RED CELL DISTRIBUTION WIDTH 16.7 % (9.6-15.2)
[2018-02-07 12:25] LABS: ALBUMIN 3.9 g/dL (3.4-5.0); ANION GAP 6 mmol/L (5-15); CALCIUM 8.9 mg/dL (8.5-10.1); CHLORIDE 109 mmol/L (98-107)
[2018-02-07 12:33] LABS: ALANINE AMINOTRANSFERASE 22 U/L (12-78); ALKALINE PHOSPHATASE 93 U/L (45-117); BILIRUBIN,TOTAL 0.4 mg/dL (0.2-1.0); CREATININE 0.83 mg/dL (0.55-1.02); TOTAL PROTEIN 7.3 g/dL (6.4-8.2)
[2018-02-07 14:00] LABS: MICROSCOPIC INDICATED
[2018-02-07 14:08] LABS: CULTURE INDICATED? YES
[2018-02-07 14:21] VITALS: BP 123/89
== END 2018-02-07 14:31 | disposition home or self-care (01) ==
LOC: ED 14:25
DX: N30.00 Acute cystitis without hematuria (principal)
CPT/HCPCS: 36415; 80053; 81001; 83690; 84703; 85025; 87086; 99284

== ENCOUNTER 2018-03-19 02:38 | Emergency (ER) | payer MEDICAID ==
[~2018-03-19] VITALS: Ht 170.2 cm; Wt 59.0 kg
[~2018-03-19 02:38] MED LIST changes: +IBUP-1623 PO; -IBUP200C5 PO
[2018-03-19 03:31] LABS: BASOPHILS # (AUTO) 0.05 x10^3/uL (0-0.1); BASOPHILS % (AUTO) 0 % (0-1); EOSINOPHILS # (AUTO) 0.07 x10^3/uL (0-0.4); EOSINOPHILS % (AUTO) 1 % (1-7); LYMPHOCYTES # (AUTO) 3.29 x10^3/uL (1-3.4); LYMPHOCYTES % (AUTO) 27 % (22-44); MD NO; MEAN CORPUSCULAR HEMOGLOBIN 26.4 pg (27.0-34.8); MEAN CORPUSCULAR HGB CONC 33.1 g/dL (32.4-35.8); MEAN CORPUSCULAR VOLUME 79.8 fL (80-100); MEAN PLATELET VOLUME 7.5 fL (7.4-10.4); MONOCYTES # (AUTO) 0.56 x10^3/uL (0.2-0.8); MONOCYTES % (AUTO) 5 % (2-9); NEUTROPHILS # (AUTO) 8.07 x10^3/uL (1.8-6.8); NEUTROPHILS % (AUTO) 67 % (42-75); PLATELET COUNT 328 x10^3/uL (130-400); RED BLOOD COUNT 4.86 x10^6/uL (3.82-5.3); RED CELL DISTRIBUTION WIDTH 16.9 % (9.6-15.2)
[2018-03-19] MEDS ORDERED: ONDANSETRON ODT 4 MG ONE (03:32)
[2018-03-19 03:34] LABS: ALANINE AMINOTRANSFERASE 17 U/L (12-78); ANION GAP 8 mmol/L (5-15); CALCIUM 8.6 mg/dL (8.5-10.1); CHLORIDE 115 mmol/L (98-107)
[2018-03-19 03:40] LABS: ACETAMINOPHEN < 2 mcg/mL (10-30); ALKALINE PHOSPHATASE 78 U/L (45-117); BILIRUBIN,TOTAL 0.2 mg/dL (0.2-1.0); CREATININE 0.89 mg/dL (0.55-1.02); SALICYLATE LEVEL < 1.7 mg/dL (2.8-20.0); TOTAL PROTEIN 7.1 g/dL (6.4-8.2)
[2018-03-19] MEDS ORDERED: ONDANSETRON ODT 4 MG PO ONE (04:00)
[2018-03-19 06:41] VITALS: BP 117/74
[2018-03-19 07:01] LABS: AMPHETAMINE SCREEN, URINE Negative (Negative); BARBITURATE SCREEN, URINE Negative (Negative); BENZODIAZEPINE SCREEN, URINE Positive (Negative); CANNABINOID SCREEN, URINE Positive (Negative); COCAINE SCREEN, URINE Negative (Negative); METHADONE SCREEN, URINE Negative (Negative); OPIATE SCREEN, URINE Negative (Negative)
== END 2018-03-19 14:22 | disposition home or self-care (01) ==
LOC: ED 03:11
DX: F20.89 Other schizophrenia (principal); F43.24 Adjustment disorder with disturbance of conduct; F31.9 Bipolar disorder, unspecified
CPT/HCPCS: 36415; 80053; 80307; 80329; 84703; 85025; 99285; Q0162; G0480

== ENCOUNTER 2018-03-23 23:47 | Emergency (ER) | payer MEDICAID ==
[~2018-03-23] VITALS: Ht 167.6 cm; Wt 58.0 kg
[2018-03-23 23:49] VITALS: BP 141/64
[2018-03-24] MEDS ORDERED: TRAZ-136 PO (00:06)
== END 2018-03-24 03:25 | disposition home or self-care (01) ==
LOC: ED 23:59
DX: F32.0 Major depressive disorder, single episode, mild (principal); F60.3 Borderline personality disorder; F25.9 Schizoaffective disorder, unspecified
CPT/HCPCS: 99284

== ENCOUNTER 2018-03-24 23:22 | Emergency (ER) | payer MEDICAID ==
[~2018-03-24] VITALS: Ht 165.1 cm; Wt 70.0 kg
[~2018-03-24 23:22] MED LIST changes: +TRAZ-136 PO
[2018-03-24 23:24] VITALS: BP 104/68
[2018-03-24 23:43] LABS: MICROSCOPIC AUTO
[2018-03-24 23:49] LABS: CULTURE INDICATED? YES
[2018-03-24] MEDS ORDERED: ACETAMINOPHEN 325 MG TABLET ONE (23:51)
[2018-03-24 23:54] LABS: ALANINE AMINOTRANSFERASE 18 U/L (12-78); ALBUMIN 3.6 g/dL (3.4-5.0); ANION GAP 4 mmol/L (5-15); CALCIUM 8.5 mg/dL (8.5-10.1); CHLORIDE 110 mmol/L (98-107); CREATININE 0.89 mg/dL (0.55-1.02)
[2018-03-24 23:56] LABS: ALKALINE PHOSPHATASE 91 U/L (45-117); BILIRUBIN,TOTAL 0.1 mg/dL (0.2-1.0); TOTAL PROTEIN 6.6 g/dL (6.4-8.2)
[2018-03-25] MEDS ORDERED: ACETAMINOPHEN 325 MG TABLET PO ONE
[2018-03-25 00:01] LABS: HCG UR SG 1.026 (1.003-1.030)
[2018-03-25 00:33] LABS: BASOPHILS # (AUTO) 0.12 x10^3/uL (0-0.1); BASOPHILS % (AUTO) 1 % (0-1); EOSINOPHILS # (AUTO) 0.21 x10^3/uL (0-0.4); EOSINOPHILS % (AUTO) 2 % (1-7); LYMPHOCYTES # (AUTO) 2.82 x10^3/uL (1-3.4); LYMPHOCYTES % (AUTO) 32 % (22-44); MD NO; MEAN CORPUSCULAR HEMOGLOBIN 26.8 pg (27.0-34.8); MEAN CORPUSCULAR HGB CONC 33.8 g/dL (32.4-35.8); MEAN CORPUSCULAR VOLUME 79.4 fL (80-100); MEAN PLATELET VOLUME 7.9 fL (7.4-10.4); MONOCYTES % (AUTO) 5 % (2-9); NEUTROPHILS # (AUTO) 5.26 x10^3/uL (1.8-6.8); NEUTROPHILS % (AUTO) 60 % (42-75); PLATELET COUNT 253 x10^3/uL (130-400); RED BLOOD COUNT 4.43 x10^6/uL (3.82-5.3)
== END 2018-03-25 00:42 | disposition home or self-care (01) ==
LOC: ED 23:58
DX: N30.01 Acute cystitis with hematuria (principal); R11.0 Nausea; Z72.9 Problem related to lifestyle, unspecified
CPT/HCPCS: 36415; 80053; 81001; 81025; 83690; 85025; 86901; 87086; 99284

== ENCOUNTER 2018-03-30 14:40 | Observation (INO) | payer MEDICAID ==
[~2018-03-30] VITALS: Ht 167.6 cm; Wt 65.0 kg
[2018-03-30] MEDS ORDERED: KETAMINE 100 MG/ML, 5ML IM ONE (15:00)
[2018-03-30] MEDS ORDERED: SODIUM CHLORIDE 0.9% 1,000ML IVBOLUS ONE (15:00)
[2018-03-30 15:29] LABS: ALBUMIN 3.3 g/dL (3.4-5.0); ANION GAP 9 mmol/L (5-15); CALCIUM 8.1 mg/dL (8.5-10.1); CHLORIDE 116 mmol/L (98-107)
[2018-03-30 15:31] LABS: MEAN CORPUSCULAR HGB CONC 32.9 g/dL (32.4-35.8); MEAN CORPUSCULAR VOLUME 79.2 fL (80-100); MEAN PLATELET VOLUME 7.9 fL (7.4-10.4); PLATELET COUNT 250 x10^3/uL (130-400); RED BLOOD COUNT 4.31 x10^6/uL (3.82-5.3); RED CELL DISTRIBUTION WIDTH 16.7 % (9.6-15.2)
[2018-03-30 15:35] LABS: ACETAMINOPHEN 21 mcg/mL (10-30); ALANINE AMINOTRANSFERASE 15 U/L (12-78); ALKALINE PHOSPHATASE 59 U/L (45-117); BILIRUBIN,TOTAL 0.1 mg/dL (0.2-1.0); CREATININE 0.63 mg/dL (0.55-1.02); TOTAL PROTEIN 6.2 g/dL (6.4-8.2)
[2018-03-30 15:36] LABS: SALICYLATE LEVEL < 1.7 mg/dL (2.8-20.0)
[2018-03-30] MEDS ORDERED: OXCA300T3 PO (15:45)
[2018-03-30] MEDS ORDERED: QUET300T5 PO (15:45)
[2018-03-30] MEDS ORDERED: FLUO20CA19 PO (15:45)
[2018-03-30 15:55] LABS: BASOPHILS # (AUTO) 0.03 x10^3/uL (0-0.1); BASOPHILS % (AUTO) 1 % (0-1); EOSINOPHILS # (AUTO) 0.07 x10^3/uL (0-0.4); EOSINOPHILS % (AUTO) 1 % (1-7); LYMPHOCYTES # (AUTO) 2.01 x10^3/uL (1-3.4); LYMPHOCYTES % (AUTO) 33 % (22-44); MD SCAN; MONOCYTES # (AUTO) 0.26 x10^3/uL (0.2-0.8); MONOCYTES % (AUTO) 4 % (2-9); NEUTROPHILS # (AUTO) 3.78 x10^3/uL (1.8-6.8); NEUTROPHILS % (AUTO) 61 % (42-75)
[2018-03-30] MEDS ORDERED: ONDANSETRON 2MG/ML, 2ML IVPush ONE (17:00)
[2018-03-30] MEDS ORDERED: ONDANSETRON 2MG/ML, 2ML ONE (17:05)
[2018-03-30] MEDS ORDERED: BENZTROPINE 1 MG TABLET PO PRN ×2 (20:00)
[2018-03-30] MEDS ORDERED: DIPHENHYDRAMINE 50 MG CAPSULE PO PRN (20:00)
[2018-03-30] MEDS ORDERED: LORazepam 1MG TABLET PO PRN (20:00)
[2018-03-30] MEDS ORDERED: HALOPERIDOL 5 MG TABLET PO PRN (20:00)
[2018-03-30] MEDS ORDERED: ACETAMINOPHEN 325 MG TABLET PO PRN (20:00)
[2018-03-30] MEDS ORDERED: HYDROcodone/APAP 5/325 TABLET PO PRN (20:00)
[2018-03-30 22:33] LABS: HCG UR SG 1.034 (1.003-1.030)
[2018-03-30 22:39] LABS: AMPHETAMINE SCREEN, URINE Negative (Negative); BARBITURATE SCREEN, URINE Negative (Negative); BENZODIAZEPINE SCREEN, URINE Negative (Negative); CANNABINOID SCREEN, URINE Negative (Negative); COCAINE SCREEN, URINE Negative (Negative); METHADONE SCREEN, URINE Negative (Negative); OPIATE SCREEN, URINE Negative (Negative)
[2018-03-30 23:29] VITALS: BP 108/61
[2018-03-30] MEDS: TRAZODONE 50MG TABLET PO SCH (23:40)
[2018-03-30] MEDS: OXCARBAZEPINE 300MG TABLET PO SCH (23:40)
[2018-03-31 07:26] LABS: AMPHETAMINE SCREEN, URINE Negative (Negative); BARBITURATE SCREEN, URINE Negative (Negative); BENZODIAZEPINE SCREEN, URINE Negative (Negative); CANNABINOID SCREEN, URINE Negative (Negative); COCAINE SCREEN, URINE Negative (Negative); METHADONE SCREEN, URINE Negative (Negative); OPIATE SCREEN, URINE Negative (Negative)
[2018-03-31 08:51] VITALS: BP 96/63
[2018-03-31] MEDS: FLUOXETINE HCL 20 MG CAPSULE PO SCH (08:56)
[2018-03-31] MEDS: OXCARBAZEPINE 300MG TABLET PO SCH ×2 (08:56→21:20)
[2018-03-31] MEDS ORDERED: QUETIAPINE 200 MG TABLET PO SCH ×2 (09:00→21:00)
[2018-03-31 20:44] VITALS: BP 113/68
[2018-03-31] MEDS: TRAZODONE 50MG TABLET PO SCH (21:20)
[2018-04-01 07:26] VITALS: BP 96/64
[2018-04-01] MEDS: OXCARBAZEPINE 300MG TABLET PO SCH ×2 (08:58→21:09)
[2018-04-01] MEDS: FLUOXETINE HCL 20 MG CAPSULE PO SCH (08:58)
[2018-04-01 19:27] VITALS: BP 105/70
[2018-04-01] MEDS: TRAZODONE 50MG TABLET PO SCH (21:08)
[2018-04-01] MEDS ORDERED: QUETIAPINE 200 MG TABLET ONE (21:26)
[2018-04-01] MEDS: QUETIAPINE 200 MG TABLET PO SCH (21:34)
[2018-04-02 07:10] LABS: BASOPHILS # (AUTO) 0.14 x10^3/uL (0-0.1); BASOPHILS % (AUTO) 2 % (0-1); EOSINOPHILS # (AUTO) 0.21 x10^3/uL (0-0.4); EOSINOPHILS % (AUTO) 2 % (1-7); LYMPHOCYTES # (AUTO) 3.54 x10^3/uL (1-3.4); LYMPHOCYTES % (AUTO) 40 % (22-44); MD NO; MEAN CORPUSCULAR HEMOGLOBIN 25.9 pg (27.0-34.8); MEAN CORPUSCULAR HGB CONC 32.8 g/dL (32.4-35.8); MEAN PLATELET VOLUME 7.5 fL (7.4-10.4); MONOCYTES # (AUTO) 0.62 x10^3/uL (0.2-0.8); MONOCYTES % (AUTO) 7 % (2-9); NEUTROPHILS # (AUTO) 4.32 x10^3/uL (1.8-6.8); NEUTROPHILS % (AUTO) 49 % (42-75); PLATELET COUNT 320 x10^3/uL (130-400); RED CELL DISTRIBUTION WIDTH 17.2 % (9.6-15.2)
[2018-04-02 07:13] LABS: ALBUMIN 3.4 g/dL (3.4-5.0); ANION GAP 7 mmol/L (5-15); CALCIUM 8.8 mg/dL (8.5-10.1); CHLORIDE 108 mmol/L (98-107); CREATININE 0.71 mg/dL (0.55-1.02)
[2018-04-02 07:52] VITALS: BP 95/61
[2018-04-02] MEDS: FLUOXETINE HCL 20 MG CAPSULE PO SCH (09:38)
[2018-04-02] MEDS: OXCARBAZEPINE 300MG TABLET PO SCH ×3 (09:38→21:16)
[2018-04-02 19:29] VITALS: BP 109/75
[2018-04-02] MEDS: TRAZODONE 50MG TABLET PO SCH (21:15)
[2018-04-02] MEDS: QUETIAPINE 200 MG TABLET PO SCH (21:15)
[2018-04-03 08:22] VITALS: BP 92/60
[2018-04-03] MEDS: OXCARBAZEPINE 300MG TABLET PO SCH ×3 (09:00→21:32)
[2018-04-03] MEDS: FLUOXETINE HCL 20 MG CAPSULE PO SCH (09:00)
[2018-04-03 20:14] VITALS: BP 104/69
[2018-04-03] MEDS: QUETIAPINE 200 MG TABLET PO SCH (21:32)
[2018-04-03] MEDS: TRAZODONE 50MG TABLET PO SCH (21:32)
[2018-04-04 08:00] VITALS: BP_SYST 94; BP_SYST 99; BP_DIAS 55; BP_DIAS 66
[2018-04-04] MEDS: FLUOXETINE HCL 20 MG CAPSULE PO SCH (08:07)
[2018-04-04] MEDS: OXCARBAZEPINE 300MG TABLET PO SCH ×3 (08:07→21:40)
[2018-04-04 20:00] VITALS: BP 123/77
[2018-04-04] MEDS: QUETIAPINE 200 MG TABLET PO SCH (21:40)
[2018-04-04] MEDS: TRAZODONE 50MG TABLET PO SCH (21:40)
[2018-04-05 08:39] VITALS: BP 92/58
[2018-04-05] MEDS: FLUOXETINE HCL 20 MG CAPSULE PO SCH (08:39)
[2018-04-05] MEDS: OXCARBAZEPINE 300MG TABLET PO SCH ×3 (08:39→21:00)
[2018-04-05 19:52] VITALS: BP 106/71
[2018-04-05] MEDS: TRAZODONE 50MG TABLET PO SCH (21:00)
[2018-04-05] MEDS: QUETIAPINE 200 MG TABLET PO SCH (21:00)
[2018-04-06 07:36] VITALS: BP 112/74
[2018-04-06] MEDS: OXCARBAZEPINE 300MG TABLET PO SCH ×3 (09:13→20:26)
[2018-04-06] MEDS: FLUOXETINE HCL 20 MG CAPSULE PO SCH (09:13)
[2018-04-06 09:18] VITALS: BP 100/63
[2018-04-06 19:42] VITALS: BP 107/70
[2018-04-06] MEDS: TRAZODONE 50MG TABLET PO SCH (20:26)
[2018-04-06] MEDS: QUETIAPINE 200 MG TABLET PO SCH (20:26)
[2018-04-07 07:41] VITALS: BP 99/58
[2018-04-07] MEDS: OXCARBAZEPINE 300MG TABLET PO SCH (08:43)
[2018-04-07] MEDS: FLUOXETINE HCL 20 MG CAPSULE PO SCH (08:43)
[2018-04-07] MEDS ORDERED: BENZ1TAB61 PO (13:42)
[2018-04-07] MEDS ORDERED: QUET300T5 PO (13:42)
== END 2018-04-07 16:35 | disposition home or self-care (01) ==
LOC: ED 15:10 → EDIP 18:24 → 2N 23:24
PROVIDERS: ADMIT Family Medicine; ATTEND Family Medicine
DX: T14.91XA Suicide attempt, initial encounter (principal); T43.592A Poisoning by other antipsychotics and neuroleptics, intentional self-harm, initial encounter; F31.9 Bipolar disorder, unspecified; D50.9 Iron deficiency anemia, unspecified; E87.6 Hypokalemia; F25.9 Schizoaffective disorder, unspecified; R73.9 Hyperglycemia, unspecified; Y92.89 Other specified places as the place of occurrence of the external cause; Z79.899 Other long term (current) drug therapy; Y93.89 Activity, other specified; Y99.8 Other external cause status
CPT/HCPCS: 36415; 80048; 80053; 80307; 80329; 81025; 82040; 84703; 85025; 93005; 96361; 96374; 99285; G0378; J2405; J7030; G0480

== ENCOUNTER 2018-05-04 17:12 | Emergency (ER) | payer MEDICAID ==
[~2018-05-04] VITALS: Ht 157.5 cm; Wt 65.0 kg
[~2018-05-04 17:12] MED LIST changes: +BENZ1TAB61 PO; +FLUO20CA19 PO; -OXCA150T PO; +OXCA150T18 PO; +OXCA300T3 PO; +QUET300T5 PO
[2018-05-04 18:40] VITALS: BP 108/76
== END 2018-05-04 18:42 | disposition home or self-care (01) ==
LOC: ED 17:35
DX: M79.662 Pain in left lower leg (principal); R05 Cough; F20.9 Schizophrenia, unspecified; F31.9 Bipolar disorder, unspecified; Z88.8 Allergy status to other drugs, medicaments and biological substances; R07.89 Other chest pain; M79.89 Other specified soft tissue disorders; G43.909 Migraine, unspecified, not intractable, without status migrainosus
CPT/HCPCS: 36415; 85379; 99283

== ENCOUNTER 2018-05-17 13:32 | Emergency (ER) | payer MEDICAID ==
[~2018-05-17] VITALS: Ht 157.5 cm; Wt 65.0 kg
[2018-05-17 14:00] VITALS: BP 125/87
[2018-05-17 14:23] LABS: BASOPHILS # (AUTO) 0.03 x10^3/uL (0-0.1); BASOPHILS % (AUTO) 1 % (0-1); EOSINOPHILS # (AUTO) 0.16 x10^3/uL (0-0.4); EOSINOPHILS % (AUTO) 3 % (1-7); LYMPHOCYTES # (AUTO) 2.59 x10^3/uL (1-3.4); LYMPHOCYTES % (AUTO) 43 % (22-44); MD NO; MEAN CORPUSCULAR HEMOGLOBIN 26.6 pg (27.0-34.8); MEAN CORPUSCULAR HGB CONC 33.3 g/dL (32.4-35.8); MEAN CORPUSCULAR VOLUME 79.8 fL (80-100); MEAN PLATELET VOLUME 7.4 fL (7.4-10.4); MONOCYTES # (AUTO) 0.41 x10^3/uL (0.2-0.8); MONOCYTES % (AUTO) 7 % (2-9); NEUTROPHILS # (AUTO) 2.79 x10^3/uL (1.8-6.8); NEUTROPHILS % (AUTO) 47 % (42-75); PLATELET COUNT 270 x10^3/uL (130-400); RED BLOOD COUNT 4.72 x10^6/uL (3.82-5.3)
[2018-05-17] MEDS ORDERED: DIPH,PERTUSS(ACELL),TET VAC/PF 0.5 ML IM-VACC ONE ×2 (14:30→16:28)
[2018-05-17 14:34] LABS: ALANINE AMINOTRANSFERASE 15 U/L (12-78); ALBUMIN 3.7 g/dL (3.4-5.0); ANION GAP 7 mmol/L (5-15); CALCIUM 8.5 mg/dL (8.5-10.1); CHLORIDE 110 mmol/L (98-107); CREATININE 0.79 mg/dL (0.55-1.02)
[2018-05-17 14:36] LABS: ALKALINE PHOSPHATASE 79 U/L (45-117); BILIRUBIN,TOTAL 0.5 mg/dL (0.2-1.0); TOTAL PROTEIN 7.1 g/dL (6.4-8.2)
== END 2018-05-17 16:35 | disposition home or self-care (01) ==
LOC: ED 16:25
DX: S61.213A Laceration without foreign body of left middle finger without damage to nail, initial encounter (principal); W25.XXXA Contact with sharp glass, initial encounter; Y93.89 Activity, other specified; Y92.098 Other place in other non-institutional residence as the place of occurrence of the external cause; Y99.8 Other external cause status
CPT/HCPCS: 36415; 80053; 85025; 90471; 90715; 93005; 99285

== ENCOUNTER 2018-05-26 20:50 | Emergency (ER) | payer MEDICAID ==
[~2018-05-26] VITALS: Ht 157.5 cm; Wt 70.9 kg
[2018-05-26 21:23] VITALS: BP 126/87
== END 2018-05-26 21:47 | disposition home or self-care (01) ==
LOC: ED 21:41
DX: F12.129 Cannabis abuse with intoxication, unspecified (principal); F11.10 Opioid abuse, uncomplicated
CPT/HCPCS: 93005; 99283

== ENCOUNTER 2018-06-05 22:36 | Emergency (ER) | payer MEDICAID ==
[~2018-06-05] VITALS: Ht 157.5 cm; Wt 69.5 kg
[2018-06-05 22:38] VITALS: BP 117/83
[2018-06-05] MEDS ORDERED: IBUPROFEN 200 MG TABLET PO ONE (23:00)
[2018-06-05] MEDS ORDERED: IBUPROFEN 200 MG TABLET ONE (23:06)
== END 2018-06-05 23:57 | disposition home or self-care (01) ==
LOC: ED 23:03
DX: S93.491A Sprain of other ligament of right ankle, initial encounter (principal); F31.9 Bipolar disorder, unspecified; F20.9 Schizophrenia, unspecified; Z72.9 Problem related to lifestyle, unspecified; F17.200 Nicotine dependence, unspecified, uncomplicated; X50.1XXA Overexertion from prolonged static or awkward postures, initial encounter; Y93.89 Activity, other specified; Y99.8 Other external cause status; Y92.410 Unspecified street and highway as the place of occurrence of the external cause
CPT/HCPCS: 99284

== ENCOUNTER 2018-06-12 16:10 | Emergency (ER) | payer MEDICAID ==
[~2018-06-12] VITALS: Ht 167.6 cm; Wt 60.0 kg
[2018-06-12 16:45] LABS: BASOPHILS # (AUTO) 0.03 x10^3/uL (0-0.1); BASOPHILS % (AUTO) 1 % (0-1); EOSINOPHILS # (AUTO) 0.12 x10^3/uL (0-0.4); EOSINOPHILS % (AUTO) 2 % (1-7); LYMPHOCYTES # (AUTO) 2.06 x10^3/uL (1-3.4); LYMPHOCYTES % (AUTO) 38 % (22-44); MD NO; MEAN CORPUSCULAR HEMOGLOBIN 25.3 pg (27.0-34.8); MEAN CORPUSCULAR HGB CONC 32.3 g/dL (32.4-35.8); MEAN CORPUSCULAR VOLUME 78.5 fL (80-100); MEAN PLATELET VOLUME 7.4 fL (7.4-10.4); MONOCYTES # (AUTO) 0.36 x10^3/uL (0.2-0.8); MONOCYTES % (AUTO) 7 % (2-9); NEUTROPHILS # (AUTO) 2.89 x10^3/uL (1.8-6.8); NEUTROPHILS % (AUTO) 53 % (42-75); PLATELET COUNT 271 x10^3/uL (130-400); RED BLOOD COUNT 4.51 x10^6/uL (3.82-5.3); RED CELL DISTRIBUTION WIDTH 16.8 % (9.6-15.2)
[2018-06-12 16:56] LABS: ALBUMIN 3.3 g/dL (3.4-5.0); ANION GAP 6 mmol/L (5-15); CALCIUM 8.4 mg/dL (8.5-10.1); CHLORIDE 111 mmol/L (98-107); CREATININE 0.76 mg/dL (0.55-1.02)
[2018-06-12 17:15] LABS: HCG UR SG 1.022 (1.003-1.030)
[2018-06-12 17:19] LABS: CULTURE INDICATED? YES; MICROSCOPIC INDICATED
[2018-06-12 17:33] VITALS: BP 108/68
== END 2018-06-12 18:36 | disposition home or self-care (01) ==
LOC: ED 18:24
DX: N30.00 Acute cystitis without hematuria (principal)
CPT/HCPCS: 36415; 80048; 81001; 81025; 82040; 85025; 87077; 87086; 87186; 99284

== ENCOUNTER 2018-06-19 19:28 | Emergency (ER) | payer MEDICAID ==
[~2018-06-19] VITALS: Ht 152.4 cm; Wt 67.0 kg
[2018-06-19 19:32] VITALS: BP 104/76
[2018-06-19] MEDS ORDERED: CEFTRIAXONE 250 MG IM ONE (20:00)
[2018-06-19] MEDS ORDERED: AZITHROMYCIN 500 MG TABLET PO ONE (20:00)
[2018-06-19 20:07] LABS: HCG UR SG 1.022 (1.003-1.030); MICROSCOPIC NOT IND
[2018-06-19 20:19] LABS: CULTURE INDICATED? NO
[2018-06-19 20:21] LABS: ALANINE AMINOTRANSFERASE 17 U/L (12-78); ALBUMIN 3.7 g/dL (3.4-5.0); ANION GAP 8 mmol/L (5-15); CALCIUM 8.6 mg/dL (8.5-10.1); CHLORIDE 111 mmol/L (98-107); CREATININE 0.79 mg/dL (0.55-1.02)
[2018-06-19 20:24] LABS: ALKALINE PHOSPHATASE 84 U/L (45-117)
[2018-06-19 20:25] LABS: BILIRUBIN,TOTAL < 0.1 mg/dL (0.2-1.0)
[2018-06-19] MEDS ORDERED: KETOROLAC 30 MG/1 ML IM ONE (20:30)
[2018-06-19] MEDS ORDERED: KETOROLAC 30 MG/1 ML ONE (20:37)
[2018-06-19] MEDS ORDERED: CEFTRIAXONE 250 MG ONE (20:37)
[2018-06-19] MEDS ORDERED: AZITHROMYCIN 250 MG TABLET ONE (20:38)
[2018-06-19 21:06] LABS: BASOPHILS # (AUTO) 0.09 x10^3/uL (0-0.1); BASOPHILS % (AUTO) 1 % (0-1); EOSINOPHILS % (AUTO) 3 % (1-7); LYMPHOCYTES # (AUTO) 2.34 x10^3/uL (1-3.4); LYMPHOCYTES % (AUTO) 33 % (22-44); MD NO; MEAN CORPUSCULAR HEMOGLOBIN 26.2 pg (27.0-34.8); MEAN CORPUSCULAR HGB CONC 32.9 g/dL (32.4-35.8); MEAN CORPUSCULAR VOLUME 79.6 fL (80-100); MEAN PLATELET VOLUME 8.9 fL (7.4-10.4); MONOCYTES # (AUTO) 0.61 x10^3/uL (0.2-0.8); MONOCYTES % (AUTO) 9 % (2-9); NEUTROPHILS # (AUTO) 3.78 x10^3/uL (1.8-6.8); NEUTROPHILS % (AUTO) 54 % (42-75); PLATELET COUNT 269 x10^3/uL (130-400); RED BLOOD COUNT 4.87 x10^6/uL (3.82-5.3); RED CELL DISTRIBUTION WIDTH 17.2 % (9.6-15.2)
== END 2018-06-19 22:12 | disposition home or self-care (01) ==
LOC: ED 21:13
DX: R10.84 Generalized abdominal pain (principal); M54.5 Low back pain
CPT/HCPCS: 36415; 80053; 81003; 81025; 85025; 87491; 87591; 99284

== ENCOUNTER 2018-06-22 06:14 | Emergency (ER) | payer MEDICAID ==
[~2018-06-22] VITALS: Ht 157.5 cm; Wt 68.1 kg
[2018-06-22] MEDS ORDERED: IBUPROFEN 200 MG TABLET ONE (06:45)
[2018-06-22] MEDS ORDERED: IBUPROFEN 200 MG TABLET PO ONE (07:00)
[2018-06-22 08:11] VITALS: BP 105/72
== END 2018-06-22 08:13 | disposition home or self-care (01) ==
LOC: ED 07:37
DX: S20.219A Contusion of unspecified front wall of thorax, initial encounter (principal); F25.9 Schizoaffective disorder, unspecified; F31.9 Bipolar disorder, unspecified; Z88.8 Allergy status to other drugs, medicaments and biological substances; Y04.0XXA Assault by unarmed brawl or fight, initial encounter; Y93.89 Activity, other specified; Y92.89 Other specified places as the place of occurrence of the external cause; Y99.8 Other external cause status
CPT/HCPCS: 71046; 99284

== ENCOUNTER 2018-07-01 17:52 | Emergency (ER) | payer MEDICAID ==
[~2018-07-01] VITALS: Ht 157.5 cm; Wt 75.0 kg
[2018-07-01] MEDS ORDERED: TRAZ-137 PO (18:17)
[2018-07-01] MEDS ORDERED: PROCHLORPERAZINE 5 MG/ML, 2ML IVPush ONE (19:00)
[2018-07-01] MEDS ORDERED: DIPHENHYDRAMINE 50 MG/ML, 1ML IVPush ONE (19:00)
[2018-07-01] MEDS ORDERED: SODIUM CHLORIDE FLUSH 10ML SYR IVF ONE (19:00)
[2018-07-01] MEDS ORDERED: SODIUM CHLORIDE 0.9% 1,000ML IVBOLUS ONE (19:00)
[2018-07-01 19:03] LABS: BASOPHILS # (AUTO) 0.07 x10^3/uL (0-0.1); BASOPHILS % (AUTO) 1 % (0-1); EOSINOPHILS # (AUTO) 0.09 x10^3/uL (0-0.4); EOSINOPHILS % (AUTO) 1 % (1-7); LYMPHOCYTES # (AUTO) 2.35 x10^3/uL (1-3.4); LYMPHOCYTES % (AUTO) 36 % (22-44); MD NO; MEAN CORPUSCULAR HEMOGLOBIN 26.2 pg (27.0-34.8); MEAN CORPUSCULAR HGB CONC 32.9 g/dL (32.4-35.8); MEAN CORPUSCULAR VOLUME 79.6 fL (80-100); MEAN PLATELET VOLUME 7.6 fL (7.4-10.4); MONOCYTES % (AUTO) 6 % (2-9); NEUTROPHILS # (AUTO) 3.63 x10^3/uL (1.8-6.8); NEUTROPHILS % (AUTO) 56 % (42-75); PLATELET COUNT 315 x10^3/uL (130-400); RED BLOOD COUNT 4.73 x10^6/uL (3.82-5.3); RED CELL DISTRIBUTION WIDTH 16.9 % (9.6-15.2)
[2018-07-01 19:14] LABS: ALBUMIN 3.6 g/dL (3.4-5.0); ANION GAP 7 mmol/L (5-15); CALCIUM 8.3 mg/dL (8.5-10.1); CHLORIDE 112 mmol/L (98-107); CREATININE 0.83 mg/dL (0.55-1.02)
[2018-07-01 19:52] VITALS: BP 113/65
[2018-07-01] MEDS ORDERED: PROCHLORPERAZINE 5 MG/ML, 2ML ONE (20:09)
[2018-07-01] MEDS ORDERED: DIPHENHYDRAMINE 50 MG/ML, 1ML ONE (20:09)
[2018-07-01 20:17] LABS: MICROSCOPIC AUTO
[2018-07-01 20:19] LABS: CULTURE INDICATED? YES
== END 2018-07-01 20:50 | disposition home or self-care (01) ==
LOC: ED 18:58
DX: G43.909 Migraine, unspecified, not intractable, without status migrainosus (principal); F60.9 Personality disorder, unspecified; F25.9 Schizoaffective disorder, unspecified; F15.10 Other stimulant abuse, uncomplicated; F31.9 Bipolar disorder, unspecified; Z72.9 Problem related to lifestyle, unspecified; Z91.410 Personal history of adult physical and sexual abuse
CPT/HCPCS: 36415; 70450; 80048; 81001; 81025; 82040; 85025; 87086; 96374; 96375; 99285; J0780; J1200; J7030

== ENCOUNTER 2018-08-10 02:28 | Emergency (ER) | payer MEDICAID ==
[~2018-08-10] VITALS: Ht 157.5 cm; Wt 60.0 kg
[~2018-08-10 02:28] MED LIST changes: -RANI-276 PO; +RANI-448 PO; -TRAZ-136 PO; +TRAZ-137 PO; +TRAZ50TA66 PO
[2018-08-10 02:34] VITALS: BP 115/78
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
--- NOTE | 2018-08-10 02:54 | NUR ---
PT DENIES ANY SI AT THIS TIME.
[2018-08-10 03:12] LABS: BASOPHILS # (AUTO) 0.07 x10^3/uL (0-0.1); BASOPHILS % (AUTO) 1 % (0-1); EOSINOPHILS # (AUTO) 0.17 x10^3/uL (0-0.4); EOSINOPHILS % (AUTO) 2 % (1-7); LYMPHOCYTES # (AUTO) 2.98 x10^3/uL (1-3.4); LYMPHOCYTES % (AUTO) 41 % (22-44); MD NO; MEAN CORPUSCULAR HEMOGLOBIN 26.1 pg (27.0-34.8); MEAN CORPUSCULAR HGB CONC 33.1 g/dL (32.4-35.8); MEAN CORPUSCULAR VOLUME 78.8 fL (80-100); MEAN PLATELET VOLUME 8.2 fL (7.4-10.4); MONOCYTES % (AUTO) 7 % (2-9); NEUTROPHILS # (AUTO) 3.63 x10^3/uL (1.8-6.8); NEUTROPHILS % (AUTO) 49 % (42-75); PLATELET COUNT 246 x10^3/uL (130-400); RED BLOOD COUNT 4.43 x10^6/uL (3.82-5.3); RED CELL DISTRIBUTION WIDTH 16.3 % (9.6-15.2)
[2018-08-10 03:18] LABS: HCG UR SG 1.027 (1.003-1.030); MICROSCOPIC AUTO
[2018-08-10 03:23] LABS: ALANINE AMINOTRANSFERASE 14 U/L (12-78); ALBUMIN 3.4 g/dL (3.4-5.0); ANION GAP 9 mmol/L (5-15); CHLORIDE 112 mmol/L (98-107); CREATININE 0.79 mg/dL (0.55-1.02)
[2018-08-10 03:26] LABS: CULTURE INDICATED? YES
[2018-08-10 03:26] LABS: ALKALINE PHOSPHATASE 81 U/L (45-117); BILIRUBIN,TOTAL 0.1 mg/dL (0.2-1.0); TOTAL PROTEIN 6.1 g/dL (6.4-8.2)
--- NOTE | 2018-08-10 04:54 | NUR ---
PT RESTING COMFORTABLY ON GURNEY. RR EVEN AND UNLABORED. NADN. RR EVEN AND UNLABORED. SITTER IN HALLWAY. ROLLER DOORS IN PLACE.
== END 2018-08-10 05:53 | disposition home or self-care (01) ==
LOC: ED 02:44
DX: F32.9 Major depressive disorder, single episode, unspecified (principal); N30.00 Acute cystitis without hematuria; F20.9 Schizophrenia, unspecified
CPT/HCPCS: 36415; 80053; 81001; 81025; 83690; 85025; 87086; 99284

== ENCOUNTER 2019-03-25 23:27 | Emergency (ER) | payer MEDICAID ==
[~2019-03-25] VITALS: Ht 157.5 cm; Wt 62.0 kg
[~2019-03-25 23:27] MED LIST changes: -ALBU6.7H INH; +ALBU6.7H8 INH
[2019-03-25 23:30] VITALS: BP 132/78
--- NOTE | 2019-03-25 23:53 | NUR ---
PT GIVEN OJ AND CRACKERS PER ED PROVIDER Addendum: 03/25/19 at 7606 by PIERCE SITTER AT BEDSIDE AND ROOM SECURED/PSYCH SAFE
--- NOTE | 2019-03-26 00:03 | NUR ---
PT STATES UNABLE TO GIVE UA, PROVIDED W/ WATER AND ADDITIONAL OJ TO ASSIST.
[2019-03-26 00:06] LABS: BASOPHILS # (AUTO) 0.03 x10^3/uL (0-0.1); BASOPHILS % (AUTO) 0 % (0-1); EOSINOPHILS # (AUTO) 0.17 x10^3/uL (0-0.4); EOSINOPHILS % (AUTO) 2 % (1-7); LYMPHOCYTES # (AUTO) 2.83 x10^3/uL (1-3.4); LYMPHOCYTES % (AUTO) 37 % (22-44); MD NO; MEAN CORPUSCULAR HGB CONC 32.9 g/dL (32.4-35.8); MEAN CORPUSCULAR VOLUME 78.9 fL (80-100); MEAN PLATELET VOLUME 8.1 fL (7.4-10.4); MONOCYTES # (AUTO) 0.39 x10^3/uL (0.2-0.8); MONOCYTES % (AUTO) 5 % (2-9); NEUTROPHILS # (AUTO) 4.23 x10^3/uL (1.8-6.8); NEUTROPHILS % (AUTO) 55 % (42-75); PLATELET COUNT 290 x10^3/uL (130-400); RED BLOOD COUNT 4.14 x10^6/uL (3.82-5.3); RED CELL DISTRIBUTION WIDTH 18.3 % (9.6-15.2)
[2019-03-26 00:18] LABS: ALANINE AMINOTRANSFERASE 13 U/L (12-78); ALBUMIN 3.4 g/dL (3.4-5.0); ANION GAP 9 mmol/L (5-15); CALCIUM 8.3 mg/dL (8.5-10.1); CHLORIDE 114 mmol/L (98-107); CREATININE 0.67 mg/dL (0.55-1.02)
[2019-03-26 00:20] LABS: ALKALINE PHOSPHATASE 71 U/L (45-117); BILIRUBIN,TOTAL 0.1 mg/dL (0.2-1.0); SALICYLATE LEVEL < 1.7 mg/dL (2.8-20.0); TOTAL PROTEIN 6.1 g/dL (6.4-8.2)
--- NOTE | 2019-03-26 00:39 | NUR ---
GAVE REPORT TO ANGEL MAE AND RELINQUISHED CARE
--- NOTE | 2019-03-26 00:42 | NUR ---
REPORT RECEIVED FROM ORTIZ MAE.
--- NOTE | 2019-03-26 00:54 | NUR ---
PT PROVIDED SOME WARM BLANCKET.
--- NOTE | 2019-03-26 01:37 | NUR ---
PT RESTING IN [facility]. RESPS EVEN AND UNLABORED. SITTER MONITORING FROM HALLWAY FOR SAFETY. ROOM REMAINS SECURE.
--- NOTE | 2019-03-26 02:30 | NUR ---
PT IS NOT ABLE TO PROVIDE URINE SAMPLE AT THIS TIME.
--- NOTE | 2019-03-26 02:53 | NUR ---
PT AMB TO BR AND BACK TO ROOM WITH STEADY GAIT. UA SENT.
[2019-03-26 03:09] LABS: AMPHETAMINE SCREEN, URINE Negative (Negative); BARBITURATE SCREEN, URINE Negative (Negative); BENZODIAZEPINE SCREEN, URINE Negative (Negative); CANNABINOID SCREEN, URINE Negative (Negative); COCAINE SCREEN, URINE Negative (Negative); METHADONE SCREEN, URINE Negative (Negative); OPIATE SCREEN, URINE Negative (Negative)
--- NOTE | 2019-03-26 05:29 | NUR ---
Patient given discharge instructions and they have confirmed that they understand the instructions. Patient ambulatory with steady gait. pt no longer si/hi. edmd ok'd to be dc at this time. pt's aox4. resps even and unlabored.
== END 2019-03-26 05:30 | disposition home or self-care (01) ==
LOC: ED 03-26 05:20
DX: F32.9 Major depressive disorder, single episode, unspecified (principal); Z72.9 Problem related to lifestyle, unspecified; F11.10 Opioid abuse, uncomplicated
CPT/HCPCS: 36415; 80053; 80307; 85025; 99284

== ENCOUNTER 2019-04-20 17:12 | Emergency (ER) | payer MEDICAID ==
[~2019-04-20] VITALS: Ht 157.5 cm; Wt 61.4 kg
[2019-04-20] MEDS ORDERED: BUSP10TA PO (17:24)
--- NOTE | 2019-04-20 17:24 | NUR ---
PT BIB [facility] FOR CP AND ABDOMINAL PAIN. PT UNSURE WHEN CP STARTED. STATES HER PAIN IN BOTH AREAS IS A 10/10 AT THIS TIME. STATES SHE IS NAUSEAS BUT HAS NOT VOMITTED. PT RESTING ON Wizeline REQUESTING PASSWORD FOR WIFI- ON HER PHONE. VSS. BARRIENTOS. PT STATES SHE WILL TRY TO PROVIDE A URINE SAMPLE NOW.
[2019-04-20] MEDS ORDERED: KETOROLAC 60 MG/2 ML ONE (17:57)
[2019-04-20] MEDS ORDERED: KETOROLAC 30 MG/1 ML IM ONE (18:00)
--- NOTE | 2019-04-20 18:00 | NUR ---
PT MEDICATED PER EMAR. RESTING ON GURNEY. NADN. VSS.
[2019-04-20 18:01] VITALS: BP 101/60
[2019-04-20 18:25] LABS: HCG UR SG 1.024 (1.003-1.030); MICROSCOPIC AUTO
[2019-04-20 18:29] LABS: CULTURE INDICATED? YES
[2019-04-20] MEDS ORDERED: CEFTRIAXONE 1,000 MG IM ONE (19:00)
[2019-04-20] MEDS ORDERED: CEFTRIAXONE 1,000 MG ONE (19:03)
--- NOTE | 2019-04-20 19:15 | NUR ---
PT MEDICATED PER EMAR. AWARE OF DC PLAN. PT IS DRESSED.
== END 2019-04-20 20:13 | disposition home or self-care (01) ==
LOC: ED 18:49
DX: N30.00 Acute cystitis without hematuria (principal); G40.909 Epilepsy, unspecified, not intractable, without status epilepticus; F31.9 Bipolar disorder, unspecified; F25.9 Schizoaffective disorder, unspecified; F60.9 Personality disorder, unspecified; Z72.9 Problem related to lifestyle, unspecified
CPT/HCPCS: 81001; 81025; 87077; 87086; 87186; 96372; 99283; J0696; J1885

== ENCOUNTER 2019-07-18 20:31 | Emergency (ER) | payer MEDICAID ==
[~2019-07-18] VITALS: Ht 157.5 cm; Wt 130.0 kg
[~2019-07-18 20:31] MED LIST changes: +BUSP10TA PO
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
--- NOTE | 2019-07-18 21:42 | NUR ---
STRAIGHT CATH PERFORMED TO OBTAIN UA. PATIENT ABLE TO FOLLOW COMMANDS, AND TOLERATED WELL.
--- NOTE | 2019-07-18 21:50 | NUR ---
AMBULANCE DISPATCHER IN ROOM
[2019-07-18 21:52] LABS: HCG UR SG 1.024 (1.003-1.030)
[2019-07-18 22:03] LABS: CULTURE INDICATED? YES; MICROSCOPIC INDICATED
[2019-07-18 22:06] LABS: BASOPHILS # (AUTO) 0.02 x10^3/uL (0-0.1); BASOPHILS % (AUTO) 0 % (0-1); EOSINOPHILS # (AUTO) 0.34 x10^3/uL (0-0.4); EOSINOPHILS % (AUTO) 3 % (1-7); LYMPHOCYTES # (AUTO) 1.41 x10^3/uL (1-3.4); LYMPHOCYTES % (AUTO) 12 % (22-44); MD NO; MEAN CORPUSCULAR HEMOGLOBIN 25.7 pg (27.0-34.8); MEAN CORPUSCULAR HGB CONC 32.1 g/dL (32.4-35.8); MEAN CORPUSCULAR VOLUME 79.9 fL (80-100); MONOCYTES # (AUTO) 0.57 x10^3/uL (0.2-0.8); MONOCYTES % (AUTO) 5 % (2-9); NEUTROPHILS # (AUTO) 9.87 x10^3/uL (1.8-6.8); NEUTROPHILS % (AUTO) 81 % (42-75); PLATELET COUNT 293 x10^3/uL (130-400); RED BLOOD COUNT 4.97 x10^6/uL (3.82-5.3)
[2019-07-18 22:16] LABS: ALANINE AMINOTRANSFERASE 14 U/L (12-78); ANION GAP 4 mmol/L (5-15); CALCIUM 9.1 mg/dL (8.5-10.1); CHLORIDE 112 mmol/L (98-107); CREATININE 0.78 mg/dL (0.55-1.02)
[2019-07-18 22:18] LABS: ALKALINE PHOSPHATASE 79 U/L (45-117); BILIRUBIN,TOTAL 0.3 mg/dL (0.2-1.0); TOTAL PROTEIN 7.6 g/dL (6.4-8.2)
--- NOTE | 2019-07-18 22:37 | NUR ---
PATIENT COMPLAINING OF PAIN, POINT TO HEAD THEN DOWN TO WHOLE BODY. UNABLE TO VERBALIZE ANY WORDS, CONTINUES TO MADELINE. Addendum: 07/18/19 at 2237 by ANN-MARIE MD DURHAM
--- NOTE | 2019-07-18 22:43 | NUR ---
PA TO ROOM TO HAVE CONVERSATION ABOUT PROBLEM WITH GIVING PAIN MEDICATION WHILE PATIETN IS ALTERED FROM BASELINE, PATIENT IS UNABLE TO VERBALIZE ANY WORDS. PATIENT IS CURRENTLY SITTING [facility] IN [facility] USING PHONE, ABLE TO PRESS CALL LIGHT.
--- NOTE | 2019-07-18 22:45 | NUR ---
PD AND PA TO ROOM
--- NOTE | 2019-07-18 23:03 | NUR ---
PRECEPTOR RN: MICRO CALLED REGARDING PENDING URINE. RACHNA BURROUGHS, STATES THAT IT IS BEING RUN AT THIS TIME AND "SHOULD RESULT IN A FEW MINUTES". ERP AND PRIMARY RN UPDATED
--- NOTE | 2019-07-18 23:26 | NUR ---
PATIENT ABLE TO SPEAK IN FULL SENTENCES WITH COMPREHENSIBLE SPEECH, AMBULATED IN ROOM WITH STAND BY ASSIST, PATIENT ASKED "DO YOU GUYS HAVE MEDICAL MARIJUANA HERE? CAUSE I DON'T USE OPIATES. THEY'VE GIVEN ME ONE BEFORE THAT WASN'T BAD OPIATES". PATIENT BACK IN BED, HAD CONVERSATION WITH PATIENT ABOUT TRANSPORTATION FOR WHEN SHE IS DISCHARGED. WHEN ASKED ABOUT EMERGENCY CONTACT, PATIENT STATES "HE DOESN'T HAVE A CAR AND NEITHER DOES MY ROOMMATE. I CAN JUST WALK HOME. IS THE DOCTOR GONNA GIVE ME ANYTHING FOR PAIN?" PATIENT EDUCATED ON MENTAL STATUS WITH PAIN MEDICATED, PATIENT COMPREHENDED WELL. VSS, SEIZURE PADS STILL IN PLACE, CALL LIGHT IN REACH.
[2019-07-18 23:45] VITALS: BP 115/80
--- NOTE | 2019-07-18 23:51 | NUR ---
PRECEPTOR RN: PT AWAKE/ALERT, SPEECH CLEAR. FACE SYMMETRICAL. +AMBULATORY. PT ABLE TO DRESS SELF AND COMMUNICATE NEEDS. DC EDUCATION PROVIDED, PT DEMONSTRATES UNDERSTANDING. [facility] TO DC BY RN. TAXI VOUCHER PROVIDED FOR SAFE TRANSPORT TO ADDRESS REQUESTED BY PT.
== END 2019-07-18 23:53 | disposition home or self-care (01) ==
LOC: ED 21:21
DX: G40.909 Epilepsy, unspecified, not intractable, without status epilepticus (principal); F12.90 Cannabis use, unspecified, uncomplicated; F25.9 Schizoaffective disorder, unspecified; F31.9 Bipolar disorder, unspecified; Z72.89 Other problems related to lifestyle
CPT/HCPCS: 36415; 80053; 81001; 81025; 85025; 87086; 93005; 99284

== ENCOUNTER 2019-07-26 03:27 | Inpatient (IN) | payer MEDICAID ==
[~2019-07-26] VITALS: Ht 162.6 cm; Wt 62.1 kg
[2019-07-26] MEDS ORDERED: ONDANSETRON ODT 4 MG PO PRN (03:30)
[2019-07-26] MEDS ORDERED: BISACODYL 10 MG SUPP PR PRN (03:30)
[2019-07-26] MEDS ORDERED: POLYETHYLENE GLYCOL 17 GM PACKET PO PRN (03:30)
[2019-07-26] MEDS ORDERED: DOCUSATE 100 MG CAPSULE PO PRN (03:30)
[2019-07-26] MEDS ORDERED: ACETAMINOPHEN 325 MG TABLET PO PRN (03:30)
[2019-07-26 05:56] VITALS: BP 120/84
[2019-07-26] MEDS ORDERED: PLEASE ENTER HEIGHT AND WEIGHT MC SCH (06:00)
[2019-07-26 06:14] VITALS: BP 116/78
[2019-07-26] MEDS ORDERED: OXCA300T3 PO (06:53)
[2019-07-26 07:13] VITALS: BP 116/78
[2019-07-26 09:01] LABS: BASOPHILS # (AUTO) 0.03 x10^3/uL (0-0.1); BASOPHILS % (AUTO) 0 % (0-1); EOSINOPHILS # (AUTO) 0.11 x10^3/uL (0-0.4); EOSINOPHILS % (AUTO) 1 % (1-7); LYMPHOCYTES # (AUTO) 2.44 x10^3/uL (1-3.4); LYMPHOCYTES % (AUTO) 27 % (22-44); MD NO; MEAN CORPUSCULAR HEMOGLOBIN 25.1 pg (27.0-34.8); MEAN CORPUSCULAR HGB CONC 31.8 g/dL (32.4-35.8); MEAN CORPUSCULAR VOLUME 78.8 fL (80-100); MEAN PLATELET VOLUME 6.9 fL (7.4-10.4); MONOCYTES # (AUTO) 0.46 x10^3/uL (0.2-0.8); MONOCYTES % (AUTO) 5 % (2-9); NEUTROPHILS # (AUTO) 5.86 x10^3/uL (1.8-6.8); NEUTROPHILS % (AUTO) 66 % (42-75); PLATELET COUNT 355 x10^3/uL (130-400); RED BLOOD COUNT 4.76 x10^6/uL (3.82-5.3); RED CELL DISTRIBUTION WIDTH 18.5 % (9.6-15.2)
[2019-07-26 09:09] LABS: ANION GAP 6 mmol/L (5-15); CALCIUM 8.7 mg/dL (8.5-10.1); CHLORIDE 111 mmol/L (98-107); CHOLESTEROL, TOTAL 196 mg/dL (140-239); CREATININE 0.63 mg/dL (0.55-1.02); TRIGLYCERIDES 116 mg/dL (50-200); VLDL CHOLESTEROL 23 mg/dL (0-25)
[2019-07-26 09:19] LABS: CHOL/HDL RATIO 3.8; FREE T4 (FREE THYROXINE) 0.75 ng/dL (0.76-1.46); HDL CHOL % 26 % (28-40); HDL CHOLESTEROL (DIRECT) 51 mg/dL (40-60); LDL CHOLESTEROL,CALCULATED 122 mg/dL (54-169); LDL/HDL RATIO 2.4 (0.5-3.0)
[2019-07-26] MEDS: FLUOXETINE HCL 20 MG CAPSULE PO SCH (16:12)
[2019-07-26] MEDS: OXCARBAZEPINE 150 MG TABLET PO SCH ×2 (16:13→20:05)
[2019-07-26 19:43] VITALS: BP 129/82
[2019-07-26] MEDS: BUSPIRONE 5 MG TABLET PO SCH (20:05)
[2019-07-26] MEDS: TRAZODONE 50MG TABLET PO SCH (20:05)
[2019-07-27 07:55] VITALS: BP 108/74
[2019-07-27] MEDS: FLUOXETINE HCL 20 MG CAPSULE PO SCH (08:59)
[2019-07-27] MEDS: OXCARBAZEPINE 150 MG TABLET PO SCH ×2 (08:59→20:08)
[2019-07-27] MEDS: BUSPIRONE 5 MG TABLET PO SCH ×2 (08:59→20:08)
[2019-07-27 19:51] VITALS: BP 118/84
[2019-07-27] MEDS: TRAZODONE 50MG TABLET PO SCH (20:08)
[2019-07-28 07:28] VITALS: BP 113/75
[2019-07-28] MEDS: FLUOXETINE HCL 20 MG CAPSULE PO SCH (08:43)
[2019-07-28] MEDS: BUSPIRONE 5 MG TABLET PO SCH ×2 (08:43→20:54)
[2019-07-28] MEDS: OXCARBAZEPINE 150 MG TABLET PO SCH ×2 (08:43→20:54)
[2019-07-28 17:16] VITALS: BP 108/72
[2019-07-28 17:30] VITALS: BP 100/69
[2019-07-28 17:44] VITALS: BP 100/70
[2019-07-28 17:56] VITALS: BP 110/76
[2019-07-28 18:13] VITALS: BP 102/71
[2019-07-28] MEDS: TRAZODONE 50MG TABLET PO SCH (20:54)
[2019-07-29 04:57] VITALS: BP 113/79
[2019-07-29 07:29] VITALS: BP 104/69
[2019-07-29] MEDS: FLUOXETINE HCL 20 MG CAPSULE PO SCH (08:21)
[2019-07-29] MEDS: OXCARBAZEPINE 150 MG TABLET PO SCH (08:21)
[2019-07-29] MEDS: BUSPIRONE 5 MG TABLET PO SCH (08:21)
[2019-07-29] MEDS ORDERED: FLUO20CA19 PO (13:07)
== END 2019-07-29 13:43 | disposition home or self-care (01) | DRG 750 ==
LOC: 3E 03:30
PROVIDERS: ADMIT Psychiatry & Neurology Psychosomatic Medicine; ATTEND Psychiatry & Neurology Psychosomatic Medicine
DX: F25.0 Schizoaffective disorder, bipolar type (principal); R45.851 Suicidal ideations; F10.10 Alcohol abuse, uncomplicated; F12.10 Cannabis abuse, uncomplicated; F41.1 Generalized anxiety disorder; G47.00 Insomnia, unspecified; I34.1 Nonrheumatic mitral (valve) prolapse; Z79.899 Other long term (current) drug therapy; Z87.891 Personal history of nicotine dependence; Z88.8 Allergy status to other drugs, medicaments and biological substances; Y90.9 Presence of alcohol in blood, level not specified
CPT/HCPCS: 36415; 71045; 80048; 80061; 84439; 84443; 85025; 93005; Q0162

== ENCOUNTER 2019-08-04 18:50 | Emergency (ER) | payer MEDICAID ==
[~2019-08-04] VITALS: Ht 157.5 cm; Wt 60.0 kg
[2019-08-04 19:01] VITALS: BP 118/70
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
[2019-08-04] MEDS ORDERED: KETOROLAC 30 MG/1 ML IM ONE (20:30)
[2019-08-04] MEDS ORDERED: KETOROLAC 30 MG/1 ML ONE (20:34)
--- NOTE | 2019-08-04 20:39 | NUR ---
medicated per emar for abd /chest and now headache at 03/01
[2019-08-04 20:59] LABS: HCG UR SG 1.022 (1.003-1.030); MICROSCOPIC AUTO
[2019-08-04 21:01] LABS: CULTURE INDICATED? YES
== END 2019-08-04 21:28 | disposition home or self-care (01) ==
LOC: ED 19:43
DX: R07.89 Other chest pain (principal); R10.84 Generalized abdominal pain
CPT/HCPCS: 81001; 81025; 87086; 96372; 99283; J1885

== ENCOUNTER 2019-09-28 12:07 | Emergency (ER) | payer MEDICAID ==
[~2019-09-28] VITALS: Ht 157.5 cm; Wt 53.6 kg
[~2019-09-28 12:07] MED LIST changes: -RANI-448 PO; +RANI-460 PO; -TRAZ-137 PO; +TRAZ-175 PO
[2019-09-28 12:11] VITALS: BP 123/91
--- NOTE | 2019-09-28 12:17 | NUR ---
LILIAN NANCE FROM HOTEL ROOM. PT C/O LEFT LEG PAIN AND STERNAL CP STARTING LAST NIGHT. LEG PAIN WORSE AFTER WALKING TO STORE AND BACK. CP INCREASED WITH INSPIRATION. CONNECTED TO MONITORING. CALL LIGHT IN REACH.
[2019-09-28 12:43] LABS: BASOPHILS # (AUTO) 0.03 x10^3/uL (0-0.1); BASOPHILS % (AUTO) 0 % (0-1); EOSINOPHILS # (AUTO) 0.12 x10^3/uL (0-0.4); EOSINOPHILS % (AUTO) 2 % (1-7); LYMPHOCYTES # (AUTO) 1.07 x10^3/uL (1-3.4); LYMPHOCYTES % (AUTO) 15 % (22-44); MD NO; MEAN CORPUSCULAR HEMOGLOBIN 25.2 pg (27.0-34.8); MEAN CORPUSCULAR HGB CONC 32.5 g/dL (32.4-35.8); MEAN CORPUSCULAR VOLUME 77.3 fL (80-100); MEAN PLATELET VOLUME 7.8 fL (7.4-10.4); MONOCYTES # (AUTO) 0.51 x10^3/uL (0.2-0.8); MONOCYTES % (AUTO) 7 % (2-9); NEUTROPHILS # (AUTO) 5.34 x10^3/uL (1.8-6.8); NEUTROPHILS % (AUTO) 76 % (42-75); PLATELET COUNT 307 x10^3/uL (130-400); RED BLOOD COUNT 4.88 x10^6/uL (3.82-5.3); RED CELL DISTRIBUTION WIDTH 18.6 % (9.6-15.2)
[2019-09-28 12:44] LABS: ALBUMIN 3.5 g/dL (3.4-5.0); ANION GAP 4 mmol/L (5-15); CALCIUM 8.6 mg/dL (8.5-10.1); CHLORIDE 113 mmol/L (98-107); CREATININE 0.73 mg/dL (0.55-1.02)
--- NOTE | 2019-09-28 13:02 | NUR ---
ALL RESULTS ARE BACK AT THIS TIME. CHART UP FOR RECHECK.
--- NOTE | 2019-09-28 13:19 | NUR ---
SPECIAL DELIVERY MESSENGER: PT WAS SEEN LEAVING, GAIT STEADY. PT FOUND OUTSIDE DEPARTMENT IN HALLWAY. SITTING ON FLOOR. PT ASSISTED TO FEET AND INTO W/C, RETURNED TO ROOM 2.
--- NOTE | 2019-09-28 13:48 | NUR ---
PT ATTEMPTING TO LEAVE HOSPITAL. PT DISORIENTED, UNAWARE OF CURRENT YEAR AND WHERE SHE IS. PT UNSTEADY ON FEET. TECH AT BEDSIDE FOR PT SAFETY. NOTIFIED. NEW ORDERS RECEIVED.
--- NOTE | 2019-09-28 14:29 | NUR ---
PT BACK FROM CT. PT RESTING COMFORTABLY ON GURNEY. PT IN DIRECT SIGHT OF SITTER, FOR PT SAFETY. PT ORIENTED TO SELF. AWAITING TEST RESULTS AT THIS TIME. PT STATES SHE IS UNABLE TO PROVIDE A URINE SAMPLE AT THIS TIME.
[2019-09-28 14:38] LABS: SALICYLATE LEVEL < 1.7 mg/dL (2.8-20.0)
--- NOTE | 2019-09-28 14:45 | NUR ---
PT STATES SHE DOES NOT KNOW HER ADDRESS OR HER BOYFRIENDS NAME/PHONE NUMBER. THIS NURSE CALLED EMERGENCY CONTACT NUMBERS FROM CHART, BOTH NUMBERS DID NOT ANSWER.
--- NOTE | 2019-09-28 14:53 | NUR ---
PT STATES SHE IS STAYING AT A [facility]OTEL IN [facility], SHE KNOWS THAT ADDRESS AND ROOM NUMBER. SHE DOES NOT KNOW WHY SHE HAS BEEN SAYING SHE DOESN'T REMEMBER WHERE SHES STAYING. SHE IS ALERT AND ORIENTED X4.
--- NOTE | 2019-09-28 15:00 | NUR ---
KEKE CALLED FOR PT.
== END 2019-09-28 15:01 | disposition home or self-care (01) ==
LOC: ED 14:45
DX: R07.89 Other chest pain (principal); M79.18 Myalgia, other site; G40.909 Epilepsy, unspecified, not intractable, without status epilepticus
CPT/HCPCS: 36415; 70450; 71045; 80048; 80307; 82040; 82140; 85025; 93005; 99284

== ENCOUNTER 2019-10-13 07:49 | Emergency (ER) | payer MEDICAID ==
[~2019-10-13] VITALS: Ht 157.5 cm; Wt 61.4 kg
--- NOTE | 2019-10-13 08:14 | NUR ---
Fly NANCE, received report with Peyton. Pt changed into gown, belongings collected and secured, phone wallet and headphones with security. Lab at bedside, drawing. CARMELA.
[2019-10-13 08:26] LABS: BASOPHILS # (AUTO) 0.03 x10^3/uL (0-0.1); BASOPHILS % (AUTO) 0 % (0-1); EOSINOPHILS # (AUTO) 0.05 x10^3/uL (0-0.4); EOSINOPHILS % (AUTO) 1 % (1-7); LYMPHOCYTES # (AUTO) 1.81 x10^3/uL (1-3.4); LYMPHOCYTES % (AUTO) 24 % (22-44); MD NO; MEAN CORPUSCULAR HEMOGLOBIN 25.5 pg (27.0-34.8); MEAN CORPUSCULAR HGB CONC 32.9 g/dL (32.4-35.8); MEAN CORPUSCULAR VOLUME 77.5 fL (80-100); MEAN PLATELET VOLUME 7.5 fL (7.4-10.4); MONOCYTES # (AUTO) 0.31 x10^3/uL (0.2-0.8); MONOCYTES % (AUTO) 4 % (2-9); NEUTROPHILS # (AUTO) 5.46 x10^3/uL (1.8-6.8); NEUTROPHILS % (AUTO) 71 % (42-75); PLATELET COUNT 344 x10^3/uL (130-400); RED BLOOD COUNT 4.81 x10^6/uL (3.82-5.3); RED CELL DISTRIBUTION WIDTH 18.4 % (9.6-15.2)
--- NOTE | 2019-10-13 08:27 | NUR ---
Pt is in suicide secured room, all belongings gathered and secured, phone ID medcaid card and debit card to security. Pt given water, socks, hospital gown and warm balnkets. Dr Toussaint spoke with pt at bedside regarding plan of care. Pt states she is unable to urinate at this time. Charge notified of need for one to one sitter. Meal tray ordered for patient.
[2019-10-13 08:39] LABS: ALBUMIN 3.7 g/dL (3.4-5.0); ANION GAP 7 mmol/L (5-15); CALCIUM 8.6 mg/dL (8.5-10.1); CHLORIDE 111 mmol/L (98-107)
[2019-10-13 08:44] LABS: ALANINE AMINOTRANSFERASE 23 U/L (12-78); ALKALINE PHOSPHATASE 80 U/L (45-117); BILIRUBIN,TOTAL 0.4 mg/dL (0.2-1.0); CREATININE 0.74 mg/dL (0.55-1.02); TOTAL PROTEIN 7.1 g/dL (6.4-8.2)
[2019-10-13 08:45] LABS: SALICYLATE LEVEL < 1.7 mg/dL (2.8-20.0)
--- NOTE | 2019-10-13 09:00 | NUR ---
Meal tray delivered, UDS walked to lab, Pt in bed in suicide secured room, NAD, no needs at this time. WCTM.
[2019-10-13 09:24] LABS: MICROSCOPIC NOT IND
[2019-10-13 09:29] LABS: CULTURE INDICATED? NO
--- NOTE | 2019-10-13 09:55 | NUR ---
Pt in bed in suicide secured room in view of HERMINIO medeiros, no needs at this time. Awaiting UDS results & psych eval. WCTM.
--- NOTE | 2019-10-13 10:18 | NUR ---
lab called to inquire about delay in UDS being run, Urine laborer cutting tool investigating delay. Pt in bed i suicide secured room w/ sitter at doorway, NAD, no needs at this time. WCTM.
[2019-10-13 10:50] LABS: AMPHETAMINE SCREEN, URINE Negative (Negative); BARBITURATE SCREEN, URINE Negative (Negative); BENZODIAZEPINE SCREEN, URINE Negative (Negative); CANNABINOID SCREEN, URINE Positive (Negative); COCAINE SCREEN, URINE Negative (Negative); METHADONE SCREEN, URINE Negative (Negative); OPIATE SCREEN, URINE Negative (Negative)
[2019-10-13] MEDS ORDERED: TRAZ50TA66 PO (10:52)
[2019-10-13] MEDS ORDERED: NEOSPORIN OINT. PKT 1 PACKET ONE (11:08)
--- NOTE | 2019-10-13 11:11 | NUR ---
Throughput RN faxed packet to [facility].
[2019-10-13] MEDS ORDERED: FLUO60TA PO (11:42)
[2019-10-13] MEDS ORDERED: BUSP15TA PO (11:42)
--- NOTE | 2019-10-13 11:48 | NUR ---
YAIMA Murguia at bedside to evaluate pt
--- NOTE | 2019-10-13 11:52 | NUR ---
Pt in bed, fiance at bedside. NAD, denies additional needs at this time. WCTM, sitter at door.
--- NOTE | 2019-10-13 12:33 | NUR ---
YAIMA Thompson cleared pt to discharge home. gathering pt belongings, phone security to get items locked in safe back to pt. Pt changing back to personal clothes in restroom.
[2019-10-13 12:38] VITALS: BP 119/67
== END 2019-10-13 12:53 | disposition home or self-care (01) ==
LOC: ED 07:54
DX: F25.9 Schizoaffective disorder, unspecified (principal); F32.9 Major depressive disorder, single episode, unspecified; R45.851 Suicidal ideations; G40.909 Epilepsy, unspecified, not intractable, without status epilepticus
CPT/HCPCS: 36415; 80053; 80307; 81003; 84703; 85025; 99284

== ENCOUNTER 2020-02-27 17:33 | Emergency (ER) | payer MEDICAID ==
[~2020-02-27] VITALS: Ht 157.5 cm; Wt 56.0 kg
[~2020-02-27 17:33] MED LIST changes: +BUSP15TA PO; +FLUO60TA PO; +NITROFURANTOIN (MACROBID) 100 MG CAPSULE PO ONE
[2020-02-27 17:40] VITALS: BP 101/69
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
[2020-02-27] MEDS ORDERED: FLUO40CA2 PO (18:01)
--- NOTE | 2020-02-27 18:02 | NUR ---
ULTRASOUND AT BEDSIDE.
[2020-02-27 18:04] LABS: ALBUMIN 3.3 g/dL (3.4-5.0); ANION GAP 5 mmol/L (5-15); CALCIUM 8.5 mg/dL (8.5-10.1); CHLORIDE 110 mmol/L (98-107); CREATININE 0.71 mg/dL (0.55-1.02); SALICYLATE LEVEL < 1.7 mg/dL (2.8-20.0)
[2020-02-27 18:11] LABS: MICROSCOPIC INDICATED
[2020-02-27 18:17] LABS: AMPHETAMINE SCREEN, URINE Negative (Negative); BARBITURATE SCREEN, URINE Negative (Negative); BENZODIAZEPINE SCREEN, URINE Negative (Negative); CANNABINOID SCREEN, URINE Negative (Negative); COCAINE SCREEN, URINE Negative (Negative); METHADONE SCREEN, URINE Negative (Negative); OPIATE SCREEN, URINE Negative (Negative)
--- NOTE | 2020-02-27 18:21 | NUR ---
ALL BELONGINGS, INCLUDING SUITCASE, SMALL TRAVEL BAG, BACKPACK AND 1 BELONGINGS BAG, LOCKED IN SECURED CABINET. SUICIDE PRECAUTIONS IN PLACE AND GARAGE DOORS DOWN.
[2020-02-27 18:54] LABS: BASOPHILS # (AUTO) 0.03 x10^3/uL (0-0.1); BASOPHILS % (AUTO) 0 % (0-1); EOSINOPHILS # (AUTO) 0.14 x10^3/uL (0-0.4); EOSINOPHILS % (AUTO) 1 % (1-7); LYMPHOCYTES # (AUTO) 1.94 x10^3/uL (1-3.4); LYMPHOCYTES % (AUTO) 18 % (22-44); MD NO; MEAN CORPUSCULAR HEMOGLOBIN 25.1 pg (27.0-34.8); MEAN CORPUSCULAR HGB CONC 31.9 g/dL (32.4-35.8); MEAN CORPUSCULAR VOLUME 78.8 fL (80-100); MEAN PLATELET VOLUME 8.6 fL (7.4-10.4); MONOCYTES # (AUTO) 0.37 x10^3/uL (0.2-0.8); MONOCYTES % (AUTO) 4 % (2-9); NEUTROPHILS % (AUTO) 77 % (42-75); PLATELET COUNT 264 x10^3/uL (130-400); RED BLOOD COUNT 4.78 x10^6/uL (3.82-5.3); RED CELL DISTRIBUTION WIDTH 19.7 % (9.6-15.2)
--- NOTE | 2020-02-27 19:03 | NUR ---
BEDSIDE REPORT FROM KANDY RN, PT RESTING COMFORTABLY IN BED, DISCUSSED PLAN OF CARE, WAITING FOR LAB RESULTS AND THEN TELE PSYCH, SAFETY OF ROOM ENSURED, SITTER OBSERVING PT FROM [place]OWNWAY
--- NOTE | 2020-02-27 19:12 | NUR ---
TP RN: TELEPSYCH INITIATED.
--- NOTE | 2020-02-27 19:35 | NUR ---
TELEPSYCH STARTED AT THIS TIME
--- NOTE | 2020-02-27 19:50 | NUR ---
PT REQUESTING SOMETHING FOR C/O HEADACHE. INFORMED PA AND ORDER WILL BE PLACED FOR TYLENEOL PO
[2020-02-27] MEDS ORDERED: ACETAMINOPHEN 325 MG TABLET ONE (19:54)
[2020-02-27] MEDS ORDERED: NEOSPORIN OINT. PKT 1 PACKET ONE (20:09)
[2020-02-27] MEDS ORDERED: ACETAMINOPHEN 325 MG TABLET PO ONE (21:00)
--- NOTE | 2020-02-27 21:36 | NUR ---
PT RESTING COMFORTABLY IN BED AT THIS TIME WATCHING TV, NAD NOTED, NO REQUESTS AT THIS TIME, SITTER OBSERVING FROM HALLWAY, CALL ALVAREZ WITHIN REACH
[2020-02-27] MEDS ORDERED: NITROFURANTOIN (MACROBID) 100 MG CAPSULE ONE (22:04)
--- NOTE | 2020-02-27 22:05 | NUR ---
[facility] to accept per CARMELITA Gutierres. Dr. Stinson accepting. Patient to room 392-1 at 2300.
--- NOTE | 2020-02-27 22:14 | NUR ---
REPORT GIVEN TO ETIENNE MAE TO ASSUME CARE UPON TRANSFER TO [facility] ROOM 391-1
[2020-02-28] MEDS ORDERED: PNV11TAB5 PO (06:18)
== END 2020-02-27 23:14 ==
LOC: ED 22:27
DX: O23.11 Infections of bladder in pregnancy, first trimester (principal); R10.84 Generalized abdominal pain; R45.851 Suicidal ideations; F25.9 Schizoaffective disorder, unspecified; F31.9 Bipolar disorder, unspecified; G40.909 Epilepsy, unspecified, not intractable, without status epilepticus; Z3A.09 9 weeks gestation of pregnancy; Z87.891 Personal history of nicotine dependence
CPT/HCPCS: 36415; 76801; 80048; 80307; 81001; 82040; 84702; 85025; 87086; 99285

== ENCOUNTER 2020-02-27 22:23 | Inpatient (IN) | payer MEDICAID ==
[~2020-02-27] VITALS: Ht 157.5 cm; Wt 61.7 kg
[~2020-02-27 22:23] MED LIST changes: +FLUO40CA2 PO; -NITROFURANTOIN (MACROBID) 100 MG CAPSULE PO ONE
[2020-02-27] MEDS ORDERED: POLYETHYLENE GLYCOL 17 GM PACKET PO PRN (23:00)
[2020-02-27] MEDS ORDERED: DIPHENHYDRAMINE 25 MG CAPSULE PO PRN (23:00)
[2020-02-27] MEDS ORDERED: ACETAMINOPHEN 325 MG TABLET PO PRN (23:00)
[2020-02-27] MEDS ORDERED: BISACODYL 10 MG SUPP PR PRN (23:00)
[2020-02-27] MEDS ORDERED: ONDANSETRON ODT 4 MG PO PRN (23:00)
[2020-02-27] MEDS ORDERED: DOCUSATE 100 MG CAPSULE PO PRN (23:00)
[2020-02-27 23:34] LABS: FREE T4 (FREE THYROXINE) 0.8 ng/dL (0.76-1.46)
[2020-02-28 01:30] VITALS: BP 105/68
[2020-02-28] MEDS ORDERED: PNV11TAB5 PO (06:18)
[2020-02-28 07:46] VITALS: BP 110/69
[2020-02-28] MEDS: PRENATAL VIT/IRON/FA 1 EACH TABLET PO SCH (09:51)
[2020-02-28 19:49] VITALS: BP 100/65
[2020-02-29 07:40] VITALS: BP 90/59
[2020-02-29] MEDS: PRENATAL VIT/IRON/FA 1 EACH TABLET PO SCH (08:27)
[2020-02-29 16:35] LABS: MICROSCOPIC AUTO
[2020-02-29 23:46] VITALS: BP 105/69
[2020-03-01 07:56] VITALS: BP 101/65
[2020-03-01] MEDS: PRENATAL VIT/IRON/FA 1 EACH TABLET PO SCH (08:22)
== END 2020-03-01 11:20 | disposition home or self-care (01) | DRG 566 ==
LOC: 3E 23:04
PROVIDERS: ADMIT Psychiatry & Neurology Psychosomatic Medicine; ATTEND Psychiatry & Neurology Psychosomatic Medicine
DX: O99.341 Other mental disorders complicating pregnancy, first trimester (principal); F25.0 Schizoaffective disorder, bipolar type; F99 Mental disorder, not otherwise specified; Z59.0 Homelessness; Z79.899 Other long term (current) drug therapy; Z80.9 Family history of malignant neoplasm, unspecified; Z83.3 Family history of diabetes mellitus; Z82.49 Family history of ischemic heart disease and other diseases of the circulatory system; Z88.8 Allergy status to other drugs, medicaments and biological substances
CPT/HCPCS: 36415; 76801; 80048; 80307; 81001; 82040; 82607; 84439; 84443; 84702; 85025; 87086; 93005; 99285

== ENCOUNTER 2020-10-31 21:44 | Emergency (ER) | payer MEDICAID ==
[~2020-10-31 21:44] MED LIST changes: +PNV11TAB5 PO
--- NOTE | 2020-10-31 21:57 | NUR ---
LILIAN FROM [facility] FOR SI WITH PLAN TO CUT WRIST. EMS BROUGHT IN PTS SINGLE BLADE RAZOR AND IT WAS PLACED IN RED BAG WITH STICKER. PT HAS MULTIPLE SUPERFICIAL SCRATCHES TO WRISTS. 2 BELONGINGS BAGS PLACED IN ROOM 2 BIN. ROOM IS SECURED PT IN GOWN UA CUP AT BEDSIDE.
--- NOTE | 2020-10-31 23:23 | NUR ---
UA provided. Warm blanket given. Pt calm in bed. Free of ham. Sitter outside room. Will continue to monitor.
[2020-10-31 23:26] LABS: BASOPHILS % (AUTO) 1 % (0-1); EOSINOPHILS % (AUTO) 3 % (1-7); LYMPHOCYTES % (AUTO) 36 % (22-44); MEAN CORPUSCULAR HGB CONC 33.4 g/dL (32.4-35.8); MEAN PLATELET VOLUME 7.2 fL (7.4-10.4); MONOCYTES % (AUTO) 9 % (2-9); NEUTROPHILS % (AUTO) 52 % (42-75); PLATELET COUNT 233 x10^3/uL (130-400); RED BLOOD COUNT 4.65 x10^6/uL (3.82-5.3); RED CELL DISTRIBUTION WIDTH 15.9 % (9.6-15.2)
[2020-10-31 23:27] LABS: MD NO
[2020-10-31 23:37] LABS: ALANINE AMINOTRANSFERASE 26 U/L (12-78); ALBUMIN 3.5 g/dL (3.4-5.0); ANION GAP 9 mmol/L (5-15); CALCIUM 8.6 mg/dL (8.5-10.1); CHLORIDE 107 mmol/L (98-107)
[2020-10-31 23:40] LABS: SALICYLATE LEVEL < 1.7 mg/dL (2.8-20.0)
[2020-10-31 23:42] LABS: ALKALINE PHOSPHATASE 84 U/L (45-117); BILIRUBIN,TOTAL 0.2 mg/dL (0.2-1.0); TOTAL PROTEIN 6.5 g/dL (6.4-8.2)
--- NOTE | 2020-11-01 00:28 | NUR ---
Pt calm in room. Free of harm. Sitter outside room. Will monitor.
[2020-11-01 01:01] LABS: AMPHETAMINE SCREEN, URINE Negative (Negative); BARBITURATE SCREEN, URINE Negative (Negative); BENZODIAZEPINE SCREEN, URINE Negative (Negative); CANNABINOID SCREEN, URINE Negative (Negative); COCAINE SCREEN, URINE Negative (Negative); METHADONE SCREEN, URINE Negative (Negative); OPIATE SCREEN, URINE Negative (Negative)
--- NOTE | 2020-11-01 01:04 | NUR ---
break RN. Pt requesting food and drinks, MD onofre, pt given snacks and sprite.
--- NOTE | 2020-11-01 03:23 | NUR ---
Psych eval completed. Dr Tsang called and said pt ok to DC to mom who is patients guardian. Mom agreed to come get patient and be in close contact with her. Pt A&O with no changes. Free of harm. Awaiting on mom.
[2020-11-01 03:48] VITALS: BP 115/74
--- NOTE | 2020-11-01 03:57 | NUR ---
Pt mom here. Mom (Lin) aware of the plan. Pt lives at home with mom. Pt released to mom who is her guardian. Pt has psych appts scheduled for next week that mom and pt know pt needs to go to. Patient/Caregiver given discharge instructions and they have confirmed that they understand the instructions. Patient ambulatory with steady gait.
== END 2020-11-01 04:00 ==
LOC: ED 22:14
DX: F32.1 Major depressive disorder, single episode, moderate (principal); F60.9 Personality disorder, unspecified; G40.909 Epilepsy, unspecified, not intractable, without status epilepticus
CPT/HCPCS: 36415; 80053; 80299; 80307; 80320; 80329; 84703; 85025; 99283; 99284; G0480

== ENCOUNTER 2020-11-14 20:48 | Emergency (ER) | payer MEDICAID ==
[~2020-11-14] VITALS: Ht 157.5 cm; Wt 68.0 kg
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
--- NOTE | 2020-11-14 21:13 | NUR ---
KELLE/MOTHERS INFORMATION, AND [phone]. ADDRESS [id number] MOTHER IS ALSO LEGAL GUARDIAN.
[2020-11-14 22:01] LABS: BASOPHILS % (AUTO) 1 % (0-1); EOSINOPHILS % (AUTO) 1 % (1-7); LYMPHOCYTES % (AUTO) 38 % (22-44); MEAN CORPUSCULAR HEMOGLOBIN 26.8 pg (27.0-34.8); MEAN PLATELET VOLUME 6.8 fL (7.4-10.4); MONOCYTES % (AUTO) 8 % (2-9); NEUTROPHILS % (AUTO) 52 % (42-75); PLATELET COUNT 315 x10^3/uL (130-400); RED BLOOD COUNT 4.56 x10^6/uL (3.82-5.3); RED CELL DISTRIBUTION WIDTH 14.9 % (9.6-15.2)
--- NOTE | 2020-11-14 22:02 | NUR ---
BREAK RN: PT RESTING IN ROOM. NO ACUTE DISTRESS NOTED. SITTER AT DOOR. WILL CONTINUE TO MONITOR WHILE PRIMARY RNSELIN IS ON BREAK.
[2020-11-14 22:11] LABS: ALBUMIN 3.2 g/dL (3.4-5.0); ANION GAP 6 mmol/L (5-15); CALCIUM 8.8 mg/dL (8.5-10.1); CHLORIDE 109 mmol/L (98-107); CREATININE 0.71 mg/dL (0.55-1.02)
[2020-11-14 22:14] LABS: SALICYLATE LEVEL < 1.7 mg/dL (2.8-20.0)
--- NOTE | 2020-11-14 22:24 | NUR ---
BREAK RN: PT GIVEN FOOD PER DR DIAZ. REPORT GIVEN TO CARMELITA SMALLWOOD
[2020-11-14 22:30] LABS: MD SCAN
[2020-11-14] MEDS ORDERED: ACETAMINOPHEN 325 MG TABLET ONE (23:05)
[2020-11-14] MEDS ORDERED: NEOSPORIN OINT. PKT 1 PACKET ONE (23:06)
--- NOTE | 2020-11-14 23:14 | NUR ---
PT COMPLAINTS OF "PAIN ALL OVER". DR DIAZ AWARE, TYLENOL ORDERED AND GIVEN. UA COLLECTED AND SENT TO LAB.
--- NOTE | 2020-11-14 23:15 | NUR ---
WOUND CARE DONE TO LEFT FOREARM, CLEANED AND BACITRIM OITMENT APPLIED.
[2020-11-14] MEDS ORDERED: ACETAMINOPHEN 325 MG TABLET PO ONE (23:30)
[2020-11-14 23:37] LABS: AMPHETAMINE SCREEN, URINE Negative (Negative); BARBITURATE SCREEN, URINE Negative (Negative); BENZODIAZEPINE SCREEN, URINE Negative (Negative); CANNABINOID SCREEN, URINE Negative (Negative); COCAINE SCREEN, URINE Negative (Negative); METHADONE SCREEN, URINE Negative (Negative); OPIATE SCREEN, URINE Negative (Negative)
--- NOTE | 2020-11-15 00:36 | NUR ---
pt resting in room, resp even and unlabored. no needs at this time
--- NOTE | 2020-11-15 03:04 | NUR ---
REPORT GIVEN TO JOSEMANUEL MAE
--- NOTE | 2020-11-15 04:34 | NUR ---
PACKET FAXED TO [facility], [facility], AND [facility]
--- NOTE | 2020-11-15 04:35 | NUR ---
PT RESTING ON [employer]. WATCHING TV. SITTER AT DOORWAY
--- NOTE | 2020-11-15 05:40 | NUR ---
PRESS CATCHER SWAB OBTAINED WITH PT PERMISSION AND WALKED TO LAB. [facility] TO ACCEPT PT PENDING COVID RESULTS.
--- NOTE | 2020-11-15 06:56 | NUR ---
REPORT TO CARMELITA ANTUNEZ
--- NOTE | 2020-11-15 07:00 | NUR ---
REPORT RECEIVED FROM CARMELITA ORTEGA. PT IS SLEEPING ON GURNEY, RESPS EVEN AND UNLABORED. SITTER MONITORING FROM [facility] FOR SAFETY. ROOM SECURE. CARE ASSUMED AT THIS TIME.
[2020-11-15 07:52] VITALS: BP 100/58
--- NOTE | 2020-11-15 08:00 | NUR ---
PT AWAKENED FOR ASSESSMENT, PT A&O, RESPS EVEN AND UNLABORED. PT ENDORSES SI STILL AT THIS TIME, HOWEVER IS CALM AND COOPEARTIVE. REPEAT VS TAKEN, WNL. REPORT GIVEN TO DANIEL MULLEN RN. PT AWAITING TRANSPORT TO [facility] AT THIS TIME.
[2020-11-15] MEDS ORDERED: ESCI20TA10 PO (09:19)
[2020-11-15] MEDS ORDERED: LEVO50TA PO (09:19)
== END 2020-11-15 08:08 ==
LOC: ED 21:31
DX: S51.812A Laceration without foreign body of left forearm, initial encounter (principal); Z20.822 Contact with and (suspected) exposure to COVID-19; R45.851 Suicidal ideations; X83.8XXA Intentional self-harm by other specified means, initial encounter; Y93.89 Activity, other specified; Y92.89 Other specified places as the place of occurrence of the external cause; Y99.8 Other external cause status
CPT/HCPCS: 36415; 80048; 80143; 80179; 80307; 80320; 82040; 84703; 85025; 87426; 99285; G0480

== ENCOUNTER 2020-11-15 06:10 | Inpatient (IN) | payer MEDICAID ==
[~2020-11-15] VITALS: Ht 157.5 cm; Wt 71.1 kg
[2020-11-15] MEDS ORDERED: DOCUSATE 100 MG CAPSULE PO PRN (07:00)
[2020-11-15] MEDS ORDERED: ONDANSETRON ODT 4 MG PO PRN (07:00)
[2020-11-15] MEDS ORDERED: BISACODYL 10 MG SUPP PR PRN (07:00)
[2020-11-15 08:15] VITALS: BP 110/69
[2020-11-15 09:00] VITALS: BP 110/69
[2020-11-15 09:09] LABS: CHOL/HDL RATIO 3.9; LDL/HDL RATIO 2.3 (0.5-3.0)
[2020-11-15] MEDS ORDERED: ESCI20TA10 PO (09:19)
[2020-11-15] MEDS ORDERED: LEVO50TA PO (09:19)
[2020-11-15] MEDS ORDERED: ESCITALOPRAM 10MG TABLET PO SCH (09:30)
[2020-11-15] MEDS: ACETAMINOPHEN 325 MG TABLET PO PRN ×3 (09:51→21:39)
[2020-11-15 16:28] LABS: MICROSCOPIC AUTO
[2020-11-15 17:17] LABS: BASOPHILS % (AUTO) 1 % (0-1); EOSINOPHILS % (AUTO) 3 % (1-7); LYMPHOCYTES % (AUTO) 46 % (22-44); MEAN CORPUSCULAR HEMOGLOBIN 26.5 pg (27.0-34.8); MEAN CORPUSCULAR HGB CONC 32.6 g/dL (32.4-35.8); MEAN PLATELET VOLUME 7.9 fL (7.4-10.4); MONOCYTES % (AUTO) 8 % (2-9); NEUTROPHILS % (AUTO) 43 % (42-75); PLATELET COUNT 359 x10^3/uL (130-400); RED BLOOD COUNT 4.76 x10^6/uL (3.82-5.3); RED CELL DISTRIBUTION WIDTH 15.2 % (9.6-15.2)
[2020-11-15 17:19] LABS: MD NO
[2020-11-15 17:29] LABS: ALANINE AMINOTRANSFERASE 34 U/L (12-78); ALBUMIN 3.4 g/dL (3.4-5.0); ANION GAP 5 mmol/L (5-15); CHLORIDE 109 mmol/L (98-107); CREATININE 0.68 mg/dL (0.55-1.02)
[2020-11-15 17:30] LABS: BILIRUBIN, DIRECT < 0.1 mg/dL (0.1-0.2)
[2020-11-15 17:39] LABS: ALKALINE PHOSPHATASE 87 U/L (45-117); BILIRUBIN,INDIRECT 0.2 mg/dL (0.0-2.0); BILIRUBIN,TOTAL 0.3 mg/dL (0.2-1.0); TOTAL PROTEIN 6.6 g/dL (6.4-8.2)
[2020-11-15] MEDS ORDERED: MEGESTROL ORAL.SUSP 40 MG/ML PO SCH (18:00)
[2020-11-15 19:33] VITALS: BP 107/70
[2020-11-15] MEDS: ESCITALOPRAM 10MG TABLET PO SCH (21:39)
[2020-11-16 04:50] LABS: FREE T4 (FREE THYROXINE) 1.83 ng/dL (0.76-1.46)
[2020-11-16] MEDS ORDERED: LEVOTHYROXINE 50 MCG TABLET PO SCH ×2 (06:00)
[2020-11-16 07:58] VITALS: BP 94/63
[2020-11-16] MEDS: ACETAMINOPHEN 325 MG TABLET PO PRN ×2 (08:55→13:27)
[2020-11-16] MEDS: POLYETHYLENE GLYCOL 17 GM PACKET PO PRN (13:27)
[2020-11-16] MEDS: CARIPRAZINE 1.5 MG CAP PO SCH (15:37)
[2020-11-16] MEDS: LORazepam 0.5MG TABLET PO PRN (16:48)
[2020-11-16 20:10] VITALS: BP 108/69
[2020-11-16] MEDS: ESCITALOPRAM 10MG TABLET PO SCH (21:29)
[2020-11-17] MEDS: ACETAMINOPHEN 325 MG TABLET PO PRN ×3 (00:09→20:23)
[2020-11-17] MEDS: LEVOTHYROXINE 75 MCG TABLET PO SCH (05:11)
[2020-11-17 07:25] VITALS: BP 103/68
[2020-11-17] MEDS: ESCITALOPRAM 10MG TABLET PO SCH ×2 (09:07→20:24)
[2020-11-17] MEDS: POLYETHYLENE GLYCOL 17 GM PACKET PO PRN (09:40)
[2020-11-17] MEDS: CARIPRAZINE 1.5 MG CAP PO SCH (10:32)
[2020-11-17 19:30] VITALS: BP 110/70
[2020-11-17] MEDS: LORazepam 0.5MG TABLET PO PRN (20:50)
[2020-11-17] MEDS ORDERED: LORazepam 2 MG/ML, 1ML IM ONE (22:00)
[2020-11-17] MEDS ORDERED: DIPHENHYDRAMINE 50 MG/ML, 1ML IM ONE ×2 (23:00)
[2020-11-18] MEDS: LEVOTHYROXINE 75 MCG TABLET PO SCH (05:32)
[2020-11-18 07:55] VITALS: BP 103/67
[2020-11-18] MEDS: CARIPRAZINE 1.5 MG CAP PO SCH (09:11)
[2020-11-18] MEDS: LORazepam 0.5MG TABLET PO PRN ×2 (11:37→23:37)
[2020-11-18] MEDS ORDERED: ESCI10TA97 PO (14:13)
[2020-11-18] MEDS ORDERED: LEVO75TA PO (14:13)
[2020-11-18] MEDS ORDERED: CARI1.5C2 PO (14:13)
[2020-11-18] MEDS ORDERED: ALPRazolam 1MG TAB ONE (14:45)
[2020-11-18] MEDS ORDERED: OMNIPAQUE 350 MG/ML, 75ML BOTTLE ONE (15:44)
[2020-11-18 19:19] VITALS: BP 107/72
[2020-11-18] MEDS ORDERED: CARIPRAZINE 1.5 MG CAP PO SCH (21:00)
[2020-11-18] MEDS: ESCITALOPRAM 10MG TABLET PO SCH (21:13)
[2020-11-18] MEDS: ACETAMINOPHEN 325 MG TABLET PO PRN (21:29)
[2020-11-19] MEDS: LEVOTHYROXINE 75 MCG TABLET PO SCH (05:42)
[2020-11-19 07:24] VITALS: BP 93/62
== END 2020-11-19 11:01 | disposition home or self-care (01) | DRG 750 ==
LOC: 3E 08:22
PROVIDERS: ADMIT Psychiatry & Neurology Psychosomatic Medicine; ATTEND Psychiatry & Neurology Psychosomatic Medicine
DX: F25.0 Schizoaffective disorder, bipolar type (principal); F41.9 Anxiety disorder, unspecified; F31.9 Bipolar disorder, unspecified; F98.4 Stereotyped movement disorders; I34.1 Nonrheumatic mitral (valve) prolapse; R45.851 Suicidal ideations; F17.200 Nicotine dependence, unspecified, uncomplicated; G43.909 Migraine, unspecified, not intractable, without status migrainosus; E03.9 Hypothyroidism, unspecified; Z79.899 Other long term (current) drug therapy; Z79.891 Long term (current) use of opiate analgesic; Z79.01 Long term (current) use of anticoagulants; Z91.5 Personal history of self-harm; Z88.8 Allergy status to other drugs, medicaments and biological substances; Z82.49 Family history of ischemic heart disease and other diseases of the circulatory system
CPT/HCPCS: 36415; 71045; 71275; 80048; 80061; 80076; 80143; 80179; 80307; 80320; 81001; 82040; 82962; 84439; 84443; 84481; 84703; 85025; 87086; 87426; 93005; 99285; Q9967; G0480; J1200; J2060

== ENCOUNTER 2020-11-20 05:14 | Emergency (ER) | payer MEDICAID ==
[~2020-11-20] VITALS: Ht 177.8 cm; Wt 68.0 kg
[~2020-11-20 05:14] MED LIST changes: +CARI1.5C2 PO; +ESCI10TA97 PO; +ESCI20TA10 PO; +LEVO50TA PO; +LEVO75TA PO
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
--- NOTE | 2020-11-20 06:01 | NUR ---
PD ARRANGING RIDE TO [facility]. PT VERBALIZED UNDERSTANDING OF PROCESS AND AGREES. AWAITING TRANSPORTATION ARRANGED BY PD. CALL TO [facility] NURSE YISSEL JOHNSON, REPORT GIVEN REGARDING PT. PT GIVEN D/C INSTRUCTIONS AND PT VERBALIZED UNDERSTANDING OF INSTRUCTIONS AND PROPER FOLLOW UP. PT D/C ACCOMPAINED BY TIFFANIE PASCUAL.
[2020-11-20 06:04] VITALS: BP 124/76
--- NOTE | 2020-11-20 06:11 | NUR ---
PT TRANSPORTED TO [facility] WITH OFFICER EMILY CUELLAR #[id number]
== END 2020-11-20 06:14 | disposition home or self-care (01) ==
LOC: ED 05:55
DX: T76.21XA Adult sexual abuse, suspected, initial encounter (principal); R51.9 Headache, unspecified; M54.5 Low back pain
CPT/HCPCS: 99283

== ENCOUNTER 2020-11-22 17:26 | Emergency (ER) | payer MEDICAID ==
[~2020-11-22] VITALS: Ht 157.5 cm; Wt 75.8 kg
--- NOTE | 2020-11-22 17:35 | NUR ---
IVONNE RN: EKG DONE IN IVONNE DUE TO CP
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
[2020-11-22 18:25] LABS: BASOPHILS % (AUTO) 1 % (0-1); EOSINOPHILS % (AUTO) 4 % (1-7); LYMPHOCYTES % (AUTO) 25 % (22-44); MEAN CORPUSCULAR HEMOGLOBIN 26.3 pg (27.0-34.8); MEAN CORPUSCULAR HGB CONC 32.6 g/dL (32.4-35.8); MEAN PLATELET VOLUME 7.2 fL (7.4-10.4); MONOCYTES % (AUTO) 10 % (2-9); NEUTROPHILS % (AUTO) 61 % (42-75); PLATELET COUNT 272 x10^3/uL (130-400); RED BLOOD COUNT 4.24 x10^6/uL (3.82-5.3); RED CELL DISTRIBUTION WIDTH 14.7 % (9.6-15.2)
[2020-11-22 18:26] LABS: MD NO
[2020-11-22 18:34] LABS: ALBUMIN 3.1 g/dL (3.4-5.0); ANION GAP 6 mmol/L (5-15); CALCIUM 8.7 mg/dL (8.5-10.1); CHLORIDE 113 mmol/L (98-107); CREATININE 0.66 mg/dL (0.55-1.02)
[2020-11-22 18:40] LABS: TROPONIN I < 0.015 ng/mL (0.000-0.045)
--- NOTE | 2020-11-22 18:42 | NUR ---
REPORT FROM TREV RN, PT CARE TRANSFERRED AT THIS TIME. NAD, RESTING ON GURNEY, DENIES ADDITIONAL NEEDS AT THIS TIME. BED IN LOWEST, RAILS ENGAGED, CALL LIGHT ON LAP, WCTM. WAITING FOR PELVIC EXAM
[2020-11-22 18:43] LABS: MICROSCOPIC AUTO
--- NOTE | 2020-11-22 19:52 | NUR ---
PT RESTING ON GURNEY, NAD, APPEARS COMFORTABLE, NO CHANGE IN CONDITION, PROVIDED SNACKS FOR COMFORT, WCTM.
--- NOTE | 2020-11-22 20:41 | NUR ---
pelvic completed, swabs walked to lab, nad, awaiting results, provided snacks for comfort. wctm.
[2020-11-22 20:55] LABS: CLUE CELLS NONE SEEN (NONE SEEN); WET PREP WBCS MODERATE (FEW)
--- NOTE | 2020-11-22 22:01 | NUR ---
PT UP AT DOOR INTO ROOM REQUESTING WHEN SHE WILL BE ABLE TO LEAVE, INFORMED THAT THE PROVIDER WILL COME IN WHEN THEY ARE AVAILABLE, UPDATED ON POC, CHART UP FOR RECHECK, NAD, NO CHANGE IN CONDITION .CARMELA.
[2020-11-22 22:17] VITALS: BP 111/77
--- NOTE | 2020-11-22 22:43 | NUR ---
Patient given discharge instructions and they have confirmed that they understand the instructions. Patient ambulatory with steady gait. NAD, DENIES ADDITIONAL NEEDS, ALL QUESTIONS ANSWERED APPROPRIATELY, CALLING MTM FOR RIDE, NO PERSONAL BELONGINGS LEFT IN ROOM AFTER DC
== END 2020-11-22 22:43 | disposition home or self-care (01) ==
LOC: ED 17:56
DX: N30.00 Acute cystitis without hematuria (principal); R07.89 Other chest pain; N89.8 Other specified noninflammatory disorders of vagina; R10.30 Lower abdominal pain, unspecified; G40.909 Epilepsy, unspecified, not intractable, without status epilepticus
CPT/HCPCS: 36415; 71045; 80048; 81001; 82040; 84484; 84703; 85025; 87086; 87210; 87491; 87591; 87808; 93005; 99285

== ENCOUNTER 2020-11-27 12:37 | Emergency (ER) | payer MEDICAID ==
[~2020-11-27] VITALS: Ht 157.5 cm; Wt 73.8 kg
[2020-11-27 13:09] VITALS: BP 118/75
[2020-11-27] MEDS ORDERED: LORazepam 1MG TABLET PO ONE (14:00)
--- NOTE | 2020-11-27 14:10 | NUR ---
TASK RN: PATIENT FOUND IN LOBBY WANDERING AROUND BY SECURITY, WALKED BACK TO ROOM BY SECURITY. PATIENT STATES "I NEED TO GET OUT OF HERE." INFORMED PATIENT SHE CAN LEAVE BUT NEEDS TO SIGN AMA PAPERWORK, PATIENT AGREEABLE. KEEPS SAYING "I NEED TO GET OUT OF HERE." AMA PAPERWORK SIGNED, PATIENT GATHERED ALL BELONGINGS AND AMBULATED WITH STEADY GAIT FROM ED.
== END 2020-11-27 14:11 | disposition left against medical advice (07) ==
LOC: ED 13:59
DX: F41.1 Generalized anxiety disorder (principal); R00.2 Palpitations; R94.31 Abnormal electrocardiogram [ECG] [EKG]
CPT/HCPCS: 93005; 99283

== ENCOUNTER 2020-12-01 12:33 | Emergency (ER) | payer MEDICAID ==
[~2020-12-01] VITALS: Ht 157.5 cm; Wt 74.0 kg
[~2020-12-01 12:33] MED LIST changes: -QUET100T PO; +QUET100T2 PO; -QUET50TA PO; +QUET50TA3 PO
--- NOTE | 2020-12-01 12:53 | NUR ---
PATIENT BIB EMS WITH CHIEF C/O MIGRAINE X1 DAY, AND CHEST PAIN THAT STARTED THIS MORNING. PER EMS PATIENT USED HER ALBUTEROL INHALER AT HOME AND CHEST PAIN WAS SOMEWHAT RELIEVED. VSS EN ROUTE. 20 GAUGE IV STARTED EN ROUTE. UPON ASSESSMENT PATIENT STATES HER MIGRAINE AND CHEST PAIN ARE A 9/10, VSS ON MONITOR, NADN, PATIENT HAS NO OTHER COMPLAINTS, CALL LIGHT WITHIN REACH.
[2020-12-01 13:18] VITALS: BP 125/76
--- NOTE | 2020-12-01 13:22 | NUR ---
Patient getting dressed and states, "I'm leaving he said I was okay." ERMD notified, discharge written. Patient given discharge instructions and they have confirmed that they understand the instructions. Patient stable and ambulatory with steady gait from ED, no patient belongings left in room.
== END 2020-12-01 13:20 | disposition home or self-care (01) ==
LOC: ED 13:00
DX: R07.89 Other chest pain (principal)
CPT/HCPCS: 93005; 99283

== ENCOUNTER 2020-12-11 01:59 | Emergency (ER) | payer MEDICAID ==
[~2020-12-11] VITALS: Ht 157.5 cm; Wt 70.0 kg
[~2020-12-11 01:59] MED LIST changes: +QUET100T PO; -QUET100T2 PO; +QUET50TA PO; -QUET50TA3 PO
[2020-12-11 02:12] VITALS: BP 104/69
--- NOTE | 2020-12-11 02:13 | NUR ---
Patient JOAQUÍN from the [facility] c/o SI. [employer] placed patient on a L2K. They state patient wanted to kill herself by cutting herself. Patient has multiple superficial lacs to her left forearm. Patient has a hx of same. Per EMS, patient also has a son less than 1yo who was taken by CPS. Patient states, "I am just depressed." Patient is in NAD. Respirations even and unlabored.
--- NOTE | 2020-12-11 02:23 | NUR ---
Urine collected and sent to lab. Room secured, belongings locked in cabinet. Sitter outside.
[2020-12-11 02:36] LABS: AMPHETAMINE SCREEN, URINE Negative (Negative); BARBITURATE SCREEN, URINE Negative (Negative); BENZODIAZEPINE SCREEN, URINE Negative (Negative); CANNABINOID SCREEN, URINE Positive (Negative); COCAINE SCREEN, URINE Negative (Negative); METHADONE SCREEN, URINE Negative (Negative); OPIATE SCREEN, URINE Negative (Negative)
[2020-12-11 02:47] LABS: BASOPHILS % (AUTO) 1 % (0-1); EOSINOPHILS % (AUTO) 4 % (1-7); LYMPHOCYTES % (AUTO) 41 % (22-44); MEAN CORPUSCULAR HEMOGLOBIN 26.6 pg (27.0-34.8); MEAN CORPUSCULAR HGB CONC 33.4 g/dL (32.4-35.8); MEAN PLATELET VOLUME 7.1 fL (7.4-10.4); MONOCYTES % (AUTO) 8 % (2-9); NEUTROPHILS % (AUTO) 46 % (42-75); PLATELET COUNT 330 x10^3/uL (130-400); RED BLOOD COUNT 4.24 x10^6/uL (3.82-5.3); RED CELL DISTRIBUTION WIDTH 14.8 % (9.6-15.2)
[2020-12-11 02:48] LABS: MD NO
[2020-12-11 02:58] LABS: ALANINE AMINOTRANSFERASE 34 U/L (12-78); ALBUMIN 3.1 g/dL (3.4-5.0); ANION GAP 5 mmol/L (5-15); CALCIUM 8.2 mg/dL (8.5-10.1); CHLORIDE 111 mmol/L (98-107)
[2020-12-11 02:59] LABS: SALICYLATE LEVEL < 1.7 mg/dL (2.8-20.0)
[2020-12-11 03:03] LABS: ALKALINE PHOSPHATASE 93 U/L (45-117); BILIRUBIN,TOTAL 0.2 mg/dL (0.2-1.0)
--- NOTE | 2020-12-11 03:58 | NUR ---
report to tomas montaño, pt care transferred at this time. pt nad, resting on gurney, moved to room 3, room secured, sitter in line of sight, belongings moved to appropriate box in locker.
--- NOTE | 2020-12-11 04:01 | NUR ---
REPORT GIVEN TO PARESH LINTON.
== END 2020-12-11 05:01 | disposition home or self-care (01) ==
LOC: ED 02:13
DX: F41.1 Generalized anxiety disorder (principal); R45.851 Suicidal ideations; G40.909 Epilepsy, unspecified, not intractable, without status epilepticus; F17.210 Nicotine dependence, cigarettes, uncomplicated
CPT/HCPCS: 36415; 80053; 80299; 80307; 80320; 80329; 84703; 85025; 99283; 99406; G0480

== ENCOUNTER 2020-12-15 16:57 | Emergency (ER) | payer MEDICAID ==
[~2020-12-15] VITALS: Ht 157.5 cm; Wt 71.9 kg
--- NOTE | 2020-12-15 17:10 | NUR ---
pt LILIAN Dorado for SA pt reports that she took 3000mg of ibuprofen in an attempt to end her life today pt reports that she has a hx of bipolar and depression and multiple suicide attempts by cutting and OD on pills pt rpeorts that she is non-complaint with her medications and that she is feeling depressed because she had a baby 2 months ago and does not have custody of him pt is A&O x4. no apparent distress. denies injury or pain denies hallucinations or delusions pt has been undressed and belongings labeled and secured. room secured and sitter present for safety
--- NOTE | 2020-12-15 17:29 | NUR ---
Dr. Erazo has been to bedside for eval pt ambualted to BR to attempt to give urine sample
--- NOTE | 2020-12-15 17:30 | NUR ---
awaiting meal tray to be delivered
[2020-12-15 17:43] LABS: BASOPHILS % (AUTO) 1 % (0-1); EOSINOPHILS % (AUTO) 3 % (1-7); LYMPHOCYTES % (AUTO) 33 % (22-44); MEAN CORPUSCULAR HGB CONC 32.8 g/dL (32.4-35.8); MEAN PLATELET VOLUME 7.3 fL (7.4-10.4); MONOCYTES % (AUTO) 7 % (2-9); NEUTROPHILS % (AUTO) 56 % (42-75); PLATELET COUNT 321 x10^3/uL (130-400); RED BLOOD COUNT 4.39 x10^6/uL (3.82-5.3); RED CELL DISTRIBUTION WIDTH 14.8 % (9.6-15.2)
[2020-12-15 17:44] LABS: MD NO
[2020-12-15 17:56] LABS: ALBUMIN 3.4 g/dL (3.4-5.0); ANION GAP 5 mmol/L (5-15); CALCIUM 8.4 mg/dL (8.5-10.1); CHLORIDE 113 mmol/L (98-107); CREATININE 0.55 mg/dL (0.55-1.02)
[2020-12-15 17:57] LABS: SALICYLATE LEVEL < 1.7 mg/dL (2.8-20.0)
--- NOTE | 2020-12-15 18:10 | NUR ---
pt sitting up on gino updated on POC room secure. sitter present for safety
--- NOTE | 2020-12-15 18:47 | NUR ---
no changes. pt resting on gurney in position of comfort. lights dimmed per request room secure. sitter present for safety report to Kai MAE
--- NOTE | 2020-12-15 18:50 | NUR ---
received report from CARMELITA Jones. patient sleeping, respiration unlabored. sitter at the door.
[2020-12-15 18:52] LABS: AMPHETAMINE SCREEN, URINE Negative (Negative); BARBITURATE SCREEN, URINE Negative (Negative); BENZODIAZEPINE SCREEN, URINE Negative (Negative); CANNABINOID SCREEN, URINE Positive (Negative); COCAINE SCREEN, URINE Negative (Negative); METHADONE SCREEN, URINE Negative (Negative); OPIATE SCREEN, URINE Negative (Negative)
--- NOTE | 2020-12-15 20:43 | NUR ---
tele psych MD talking to patient at this time for evaluation.
--- NOTE | 2020-12-15 21:41 | NUR ---
patient discharged with instruction. verbalized understanding. all belongings given back to patient.
[2020-12-15 21:42] VITALS: BP 127/79
== END 2020-12-15 21:44 | disposition home or self-care (01) ==
LOC: ED 17:37
DX: R45.851 Suicidal ideations (principal); G40.909 Epilepsy, unspecified, not intractable, without status epilepticus; F17.200 Nicotine dependence, unspecified, uncomplicated; F25.9 Schizoaffective disorder, unspecified
CPT/HCPCS: 36415; 80048; 80299; 80307; 80320; 80329; 82040; 84703; 85025; 99283; G0480

== ENCOUNTER 2020-12-16 12:10 | Emergency (ER) | payer MEDICAID ==
[~2020-12-16] VITALS: Ht 162.6 cm; Wt 72.0 kg
[2020-12-16 12:14] VITALS: BP 112/78
--- NOTE | 2020-12-16 12:22 | NUR ---
Pt BIB EMS from [facility] due to concerns from boyfriend that pt might have a sz. Pt was reported to have an unsteady gait when walking around [employer] with boyfriend, when EMS arrived she was reported to be A&O x1, pt is still A&O x1 whith only reportingher name correctly. PPt placed on all moniotrs, VSS, NADN. Concerned about zoom call with her son at 1pm [employer] cell phone. Sizure precautions in place, IV in L wrist, WCTM.
--- NOTE | 2020-12-16 12:40 | NUR ---
Pt pressed call light and when this RN asked what was wrong the pt stated "I need pain meds now" when asked what hurts the pt took a moment to think and responded "my head i think i have a headache". PT resting comfotably in bed, respirations even and unlabored, pt continually on cell phone, FLOYD CHOW.
[2020-12-16 13:07] LABS: BASOPHILS % (AUTO) 1 % (0-1); EOSINOPHILS % (AUTO) 4 % (1-7); LYMPHOCYTES % (AUTO) 39 % (22-44); MEAN CORPUSCULAR HEMOGLOBIN 25.5 pg (27.0-34.8); MEAN CORPUSCULAR HGB CONC 32.3 g/dL (32.4-35.8); MEAN PLATELET VOLUME 7.3 fL (7.4-10.4); MONOCYTES % (AUTO) 6 % (2-9); NEUTROPHILS % (AUTO) 50 % (42-75); PLATELET COUNT 316 x10^3/uL (130-400); RED BLOOD COUNT 4.71 x10^6/uL (3.82-5.3); RED CELL DISTRIBUTION WIDTH 14.6 % (9.6-15.2)
[2020-12-16 13:09] LABS: ALBUMIN 3.4 g/dL (3.4-5.0); ANION GAP 4 mmol/L (5-15); CALCIUM 8.6 mg/dL (8.5-10.1); CHLORIDE 111 mmol/L (98-107); CREATININE 0.56 mg/dL (0.55-1.02)
[2020-12-16 13:10] LABS: MD NO
--- NOTE | 2020-12-16 13:10 | NUR ---
Pt on FaceTime with son, HERMINION, VSS
== END 2020-12-16 14:03 | disposition home or self-care (01) ==
LOC: ED 13:30
DX: R42 Dizziness and giddiness (principal); T50.995A Adverse effect of other drugs, medicaments and biological substances, initial encounter; Y92.9 Unspecified place or not applicable
CPT/HCPCS: 36415; 80048; 82040; 85025; 93005; 99284

== ENCOUNTER 2020-12-24 10:35 | Emergency (ER) | payer MEDICAID ==
[~2020-12-24] VITALS: Ht 167.6 cm; Wt 70.0 kg
[2020-12-24 10:49] VITALS: BP 119/79
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
--- NOTE | 2020-12-24 11:00 | NUR ---
PT REFUSING LABS
--- NOTE | 2020-12-24 11:03 | NUR ---
PT PLACED ON A LEGAL HOLD BY THE MOST TEAM.
--- NOTE | 2020-12-24 11:20 | NUR ---
PT UNABLE TO PROVIDE URINE AT THIS TIME. PT INSTRUCTED ON HOW TO PROVIED A URINE SAMPLE. WILL FOLLOW UP WITH PT LATER.
--- NOTE | 2020-12-24 12:16 | NUR ---
SITTER OUTSIDE ROOM. PT SITTING ON ED NAD. BASIL
[2020-12-24 12:49] LABS: BASOPHILS % (AUTO) 1 % (0-1); EOSINOPHILS % (AUTO) 4 % (1-7); LYMPHOCYTES % (AUTO) 36 % (22-44); MEAN CORPUSCULAR HEMOGLOBIN 25.2 pg (27.0-34.8); MEAN CORPUSCULAR HGB CONC 32.1 g/dL (32.4-35.8); MEAN PLATELET VOLUME 7.4 fL (7.4-10.4); MONOCYTES % (AUTO) 5 % (2-9); NEUTROPHILS % (AUTO) 54 % (42-75); PLATELET COUNT 279 x10^3/uL (130-400); RED BLOOD COUNT 4.73 x10^6/uL (3.82-5.3); RED CELL DISTRIBUTION WIDTH 14.8 % (9.6-15.2)
[2020-12-24 12:51] LABS: MD NO
[2020-12-24 12:53] LABS: ALBUMIN 3.3 g/dL (3.4-5.0); ANION GAP 5 mmol/L (5-15); CALCIUM 8.3 mg/dL (8.5-10.1); CHLORIDE 110 mmol/L (98-107)
[2020-12-24 12:58] LABS: CREATININE 0.59 mg/dL (0.55-1.02)
[2020-12-24 13:00] LABS: SALICYLATE LEVEL < 1.7 mg/dL (2.8-20.0)
[2020-12-24 13:06] LABS: AMPHETAMINE SCREEN, URINE Negative (Negative); BARBITURATE SCREEN, URINE Negative (Negative); BENZODIAZEPINE SCREEN, URINE Negative (Negative); CANNABINOID SCREEN, URINE Positive (Negative); COCAINE SCREEN, URINE Negative (Negative); METHADONE SCREEN, URINE Negative (Negative); OPIATE SCREEN, URINE Negative (Negative)
--- NOTE | 2020-12-24 13:22 | NUR ---
MEGHA ERWIN AT BEDSIDE. GARAGE DOORS DOWN AND SITTER OUTSIDE ROOM FOR SAFETY. AWAKE AND ALERT, RESP EVEN AND UNLABORED, FLOYD.
--- NOTE | 2020-12-24 13:37 | NUR ---
MT: [facility] WILL ACCEPT THE PT IF THE COVID TEST COMES BACK NEGATIVE. ACCEPTING DOCTOR IS DR Sanchez
--- NOTE | 2020-12-24 13:50 | NUR ---
COVID TEST COMPLETED AND WALKED DOWN TO LAB.
[2020-12-24] MEDS ORDERED: SILVER SULF. CRM 1% , 25GM TP ONE (19:30)
[2020-12-25] MEDS ORDERED: LEVOTHYROXINE 50 MCG TABLET PO SCH (06:00)
== END 2020-12-24 15:02 ==
LOC: ED 14:33
DX: R45.851 Suicidal ideations (principal); G40.909 Epilepsy, unspecified, not intractable, without status epilepticus; Z20.822 Contact with and (suspected) exposure to COVID-19; F25.9 Schizoaffective disorder, unspecified; F39 Unspecified mood [affective] disorder
CPT/HCPCS: 36415; 80048; 80299; 80307; 80320; 80329; 82040; 84703; 85025; 87426; 99285; G0480

== ENCOUNTER 2020-12-24 13:53 | Inpatient (IN) | payer MEDICAID ==
[~2020-12-24] VITALS: Ht 157.5 cm; Wt 74.6 kg
[2020-12-24] MEDS ORDERED: DOCUSATE 100 MG CAPSULE PO PRN (16:00)
[2020-12-24] MEDS ORDERED: POLYETHYLENE GLYCOL 17 GM PACKET PO PRN (16:00)
[2020-12-24] MEDS ORDERED: PLEASE ENTER HEIGHT AND WEIGHT MC SCH (16:30)
[2020-12-24 16:32] VITALS: BP 115/82
[2020-12-24 19:41] VITALS: BP 121/85
[2020-12-24] MEDS: ACETAMINOPHEN 325 MG TABLET PO PRN (21:12)
[2020-12-24] MEDS: TRAZODONE 50MG TABLET PO PRN ×2 (21:54→21:58)
[2020-12-25 07:39] VITALS: BP 111/72
[2020-12-25] MEDS ORDERED: DIAZEPAM 10 MG TABLET ONE (15:05)
[2020-12-25] MEDS ORDERED: DIAZEPAM 5 MG/ML, 2ML IM STA (15:06)
[2020-12-25] MEDS: LURASIDONE 20 MG TABLET PO SCH (16:54)
[2020-12-25] MEDS ORDERED: IBUPROFEN 600 MG TABLET ONE (18:43)
[2020-12-25 18:45] VITALS: BP 110/74
[2020-12-25] MEDS: IBUPROFEN 600 MG TABLET PO PRN (18:46)
[2020-12-25] MEDS: TRAZODONE 50MG TABLET PO PRN (20:57)
[2020-12-25 22:51] LABS: MICROSCOPIC INDICATED
[2020-12-26 07:23] VITALS: BP 97/63
[2020-12-26] MEDS: LURASIDONE 20 MG TABLET PO SCH (08:26)
[2020-12-26] MEDS: ACETAMINOPHEN 325 MG TABLET PO PRN (09:18)
[2020-12-26] MEDS ORDERED: PHENAZOPYRIDINE 200 MG TABLET PO PRN (13:30)
[2020-12-26] MEDS ORDERED: DIAZEPAM 5 MG TABLET ONE (14:42)
[2020-12-26] MEDS ORDERED: DIAZEPAM 10 MG TABLET PO PRN (15:00)
[2020-12-26 19:36] VITALS: BP 96/62
[2020-12-27 07:08] VITALS: BP 100/66
[2020-12-27] MEDS: LURASIDONE 20 MG TABLET PO SCH (08:33)
[2020-12-27] MEDS: IBUPROFEN 600 MG TABLET PO PRN (08:33)
== END 2020-12-27 11:52 | disposition home or self-care (01) | DRG 750 ==
LOC: 3E 15:21
PROVIDERS: ADMIT Psychiatry & Neurology Psychosomatic Medicine; ATTEND Psychiatry & Neurology Psychosomatic Medicine
DX: F25.0 Schizoaffective disorder, bipolar type (principal); E03.9 Hypothyroidism, unspecified; F60.3 Borderline personality disorder; F63.9 Impulse disorder, unspecified; G43.909 Migraine, unspecified, not intractable, without status migrainosus; Z79.890 Hormone replacement therapy; Z79.899 Other long term (current) drug therapy; Z82.49 Family history of ischemic heart disease and other diseases of the circulatory system
CPT/HCPCS: 81001; 87086; 93005; J3360

== ENCOUNTER 2021-01-13 03:41 | Emergency (ER) | payer MEDICAID ==
[~2021-01-13] VITALS: Ht 157.5 cm; Wt 75.0 kg
[2021-01-13 03:49] VITALS: BP 95/65
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
[2021-01-13 04:40] LABS: AMPHETAMINE SCREEN, URINE Negative (Negative); BARBITURATE SCREEN, URINE Negative (Negative); BENZODIAZEPINE SCREEN, URINE Negative (Negative); CANNABINOID SCREEN, URINE Negative (Negative); COCAINE SCREEN, URINE Negative (Negative); METHADONE SCREEN, URINE Negative (Negative); OPIATE SCREEN, URINE Negative (Negative)
[2021-01-13 04:49] LABS: ALBUMIN 3.8 g/dL (3.4-5.0); ANION GAP 5 mmol/L (5-15); BASOPHILS % (AUTO) 1 % (0-1); CALCIUM 8.6 mg/dL (8.5-10.1); CHLORIDE 107 mmol/L (98-107); CREATININE 0.67 mg/dL (0.55-1.02); EOSINOPHILS % (AUTO) 3 % (1-7); LYMPHOCYTES % (AUTO) 48 % (22-44); MEAN CORPUSCULAR HEMOGLOBIN 25.5 pg (27.0-34.8); MEAN PLATELET VOLUME 7.6 fL (7.4-10.4); MONOCYTES % (AUTO) 7 % (2-9); NEUTROPHILS % (AUTO) 41 % (42-75); PLATELET COUNT 270 x10^3/uL (130-400); RED BLOOD COUNT 4.54 x10^6/uL (3.82-5.3); RED CELL DISTRIBUTION WIDTH 15.9 % (9.6-15.2)
[2021-01-13 04:50] LABS: SALICYLATE LEVEL < 1.7 mg/dL (2.8-20.0)
[2021-01-13 04:51] LABS: MD NO
--- NOTE | 2021-01-13 05:24 | NUR ---
This RN called house sup for sitter request, soonest they can provide one is 10am. This RN will continue to complete Q15min saftey checks at this time.
--- NOTE | 2021-01-13 06:31 | NUR ---
PT PROVIDED ALL BELONGINGS AND DC PAPERS, VERBALIZED UNDERSTANDING
== END 2021-01-13 06:45 | disposition home or self-care (01) ==
LOC: ED 05:15
DX: R45.851 Suicidal ideations (principal); F25.8 Other schizoaffective disorders; F60.3 Borderline personality disorder; F32.9 Major depressive disorder, single episode, unspecified
CPT/HCPCS: 36415; 80048; 80299; 80307; 80320; 80329; 82040; 84703; 85025; 99285; G0480

== ENCOUNTER 2021-05-20 21:48 | Emergency (ER) | payer MEDICAID ==
[~2021-05-20] VITALS: Ht 170.2 cm; Wt 90.0 kg
[~2021-05-20 21:48] MED LIST changes: -QUET100T PO; +QUET100T2 PO; -QUET50TA PO; +QUET50TA3 PO
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
--- NOTE | 2021-05-20 22:23 | NUR ---
LAB AT BEDSIDE.
[2021-05-20 22:32] LABS: BASOPHILS % (AUTO) 1 % (0-1); EOSINOPHILS % (AUTO) 2 % (1-7); LYMPHOCYTES % (AUTO) 25 % (22-44); MEAN CORPUSCULAR HEMOGLOBIN 26.3 pg (27.0-34.8); MEAN CORPUSCULAR HGB CONC 33.3 g/dL (32.4-35.8); MEAN PLATELET VOLUME 7.3 fL (7.4-10.4); MONOCYTES % (AUTO) 6 % (2-9); NEUTROPHILS % (AUTO) 66 % (42-75); PLATELET COUNT 377 x10^3/uL (130-400); RED BLOOD COUNT 4.98 x10^6/uL (3.82-5.3); RED CELL DISTRIBUTION WIDTH 16.8 % (9.6-15.2)
[2021-05-20 22:35] LABS: ALBUMIN 3.5 g/dL (3.4-5.0); ANION GAP 5 mmol/L (5-15); CALCIUM 8.5 mg/dL (8.5-10.1); CHLORIDE 116 mmol/L (98-107)
[2021-05-20] MEDS ORDERED: POTASSIUM CHLORIDE 20 MEQ TAB.ER.PRT PO ONE (23:00)
[2021-05-20] MEDS ORDERED: POTASSIUM CHLORIDE 20 MEQ TAB.ER.PRT ONE (23:09)
[2021-05-20 23:39] VITALS: BP 119/68
== END 2021-05-20 23:40 | disposition home or self-care (01) ==
LOC: ED 21:53
DX: S06.0X0A Concussion without loss of consciousness, initial encounter (principal); S00.81XA Abrasion of other part of head, initial encounter; G40.909 Epilepsy, unspecified, not intractable, without status epilepticus; X58.XXXA Exposure to other specified factors, initial encounter; Y93.89 Activity, other specified; Y92.89 Other specified places as the place of occurrence of the external cause; Y99.8 Other external cause status
CPT/HCPCS: 36415; 80048; 82040; 85025; 99283